=== PATIENT | female | born 1955 ===

== ENCOUNTER 2016-12-26 12:04 | Emergency (ER) | payer MEDICARE, MEDICAID ==
[2016-12-26 12:04] VITALS: BMI 40.8
[2016-12-26 12:18] VITALS: TEMP 97.4
[2016-12-26] MEDS ORDERED: Sodium Chloride 0.9% 1,000 ML IV STA (12:31)
--- NOTE | 2016-12-26 12:47 | ED PDOC ---
Arrival/HPI - General Chief Complaint: Headache Time Seen by Provider: 12/26/16 12:09 Historian: Patient, Family (Daughter) - History of Present Illness Narrative History of Present Illness (Text): 12/26/16 12:26 Neida Tineo is a 61 year old female whose past medical history includes Diabetes and Migraine headaches, who presents to the ED accompanied with daughter for a right sided headache for 10 days. Patient also reports sensitivity to light. Patient states current headache is similar to previous migraine headaches. Patient and daughter states sugar levels have remained consistently normal. Patient otherwise denies any focal weakness, fever, chest pain, shortness of breath, dizziness, nausea, vomiting, abdominal pain, urinary/ bowel changes, or other associated symptoms. PMD: None Time/Duration: > week (10 days) Symptom Onset: Gradual Symptom Course: Unchanged Activities at Onset: Light Context: Home Past Medical History - Provider Review Nursing Documentation Reviewed: Yes - Infectious Disease Hx of Infectious Diseases: None - Reproductive Menopause: Yes - Cardiac Hx Hypotension: Yes - Pulmonary Hx Asthma: Yes Hx Sleep Apnea: Yes (uses CPAP at night, Ambien) - Neurological Hx Migraine: Yes - Endocrine/Metabolic Hx Diabetes Mellitus Type 1: Yes Hx Hypothyroidism: Yes (thyroid removed in 2011) - Psychiatric Hx Depression: Yes Hx Substance Use: No - Surgical History Hx Thyroidectomy: Yes (2011) - Anesthesia Hx Anesthesia: Yes Hx Anesthesia Reactions: No Hx Malignant Hyperthermia: No Family/Social History - Physician Review Nursing Documentation Reviewed: Yes Family/Social History: No Known Family HX Smoking Status: Never Smoked Hx Alcohol Use: No Hx Substance Use: No Allergies/Home Meds Allergies/Adverse Reactions: Allergies No Known Allergies Allergy (Verified 12/26/16 12:18) Home Medications: Home Meds Medication Instructions Recorded Confirmed Albuterol Sulfate [Proventil Hfa] 0.09 mg IH PRN PRN 03/29/16 03/29/16 Amitriptyline [Elavil] 50 mg PO DAILY 03/29/16 03/29/16 Aspirin [Aspirin Chewable] 81 mg PO DAILY 03/29/16 03/29/16 Exenatide Microspheres [Bydureon 2 mg SC AC 03/29/16 03/29/16 Pen] Fluticasone Propionate [Flovent 0 gm IH PRN PRN 03/29/16 03/29/16 Hfa] Insulin Glargine, Recombina 35 unit SC QAM 03/29/16 03/29/16 [Lantus] Insulin Human (NPH)/Regular 10 units SC AC 03/29/16 03/29/16 [Novolin 70/30 (70/30 units/ml) 10 ml] Levothyroxine Sodium [Synthroid] 75 mcg PO DAILY 03/29/16 03/29/16 Losartan [Cozaar] 50 mg PO DAILY 03/29/16 03/29/16 Metoclopramide [Reglan] 10 mg PO DAILY 03/29/16 03/29/16 Metoprolol Succinate XL [Toprol XL] 25 mg PO BRK 03/29/16 03/29/16 Naproxen 375 mg PO PRN PRN 03/29/16 03/29/16 Ofloxacin Ophth 0.3% [Ocuflox 1 drop OU Q6 03/29/16 03/29/16 Ophth 0.3%] Sumatriptan Succinate [Imitrex] 50 mg PO DAILY 03/29/16 03/29/16 buPROPion [Wellbutrin] 300 mg PO DAILY 03/29/16 03/29/16 metFORMIN [glucOPHAGE] 1,000 mg PO BID 03/29/16 03/29/16 Review of Systems - Physician Review All systems were reviewed & negative as marked: Yes - Review of Systems Constitutional: Normal. absent: Fevers Eyes: Photophobia. absent: Vision Changes ENT: Normal Respiratory: Normal. absent: SOB, Cough Cardiovascular: Normal. absent: Chest Pain Gastrointestinal: Normal. absent: Abdominal Pain, Diarrhea, Nausea, Vomiting Genitourinary Female: Normal. absent: Dysuria, Frequency, Hematuria, Urine Output Changes Musculoskeletal: Normal. absent: Back Pain, Neck Pain Skin: Normal Neurological: Headache (Right Sided). absent: Dizziness Endocrine: Normal Hemo/Lymphatic: Normal Psychiatric: Normal Physical Exam Vital Signs Reviewed: Yes Vital Signs Temp Pulse Resp BP Pulse Ox 12/26/16 12:11 97.4 F L 100 H 19 104/65 98 12/26/16 12:05 100 H 19 104/65 98 Temperature: Afebrile Blood Pressure: Normal Pulse: Regular Respiratory Rate: Normal Appearance: Positive for: Well-Appearing, Non-Toxic, Comfortable Pain Distress: None Mental Status: Positive for: Alert and Oriented X 3 - Systems Exam Head: Present: Atraumatic, Normocephalic Pupils: Present: PERRL Extroacular Muscles: Present: EOMI Conjunctiva: Present: Normal Mouth: Present: Moist Mucous Membranes Pharnyx: Present: Normal. No: ERYTHEMA, EXUDATE Respiratory/Chest: Present: Clear to Auscultation, Good Air Exchange. No: Respiratory Distress, Accessory Muscle Use Cardiovascular: Present: Regular Rate and Rhythm, Normal S1, S2. No: Murmurs Abdomen: Present: Normal Bowel Sounds. No: Tenderness, Distention, Peritoneal Signs Upper Extremity: Present: Normal Inspection. No: Cyanosis, Edema Lower Extremity: Present: Normal Inspection. No: Edema Neurological: Present: GCS=15, CN II-XII Intact, Speech Normal, Gait Normal Skin: Present: Warm, Dry, Normal Color. No: Rashes Psychiatric: Present: Alert, Oriented x 3, Normal Insight, Normal Concentration Medical Decision Making ED Course and Treatment: 12/26/16 12:26 Impression: 61 year old female with right sided headache for the last 10 days. Differential Diagnosis include but are not limited to: Migraine Headache vs. Tension Headache vs. less likely Mass Plan: -- Brain CT -- Labs -- IV Fluids -- Reglan -- Toradol -- Reassess and disposition Prior Visits: Notes and results from previous visits were reviewed. Patient was last seen in the ED on 03/29/16 for acute slurred speech. Progress Notes: 12/26/16 13:53 Procedure: CT HEAD WITHOUT CONTRAST. Dictator: OCHOA RAMAN MD Impression: No acute intracranial abnormality. Mild chronic microangiopathic changes and moderate age-related global parenchymal volume loss. 12/26/16 14:07 Patient with noted history of headache consistent with previous migraines but for [address] brain is negative with unremarkable neuro exam. Labs are unremarkable. Patient reports feeling much better s/p meds. She has a pmd with whom she can follow up and wishes to go home. Ok for d/c. - Lab Interpretations Lab Results: 12/26/16 13:00 12/26/16 13:00 Lab Results 12/26/16 13:00: WBC 9.4, RBC 4.02, Hgb 12.2, Hct 35.5 L, MCV 88.3, MCH 30.3, MCHC 34.4, RDW 13.6, Plt Count 324, MPV 10.8, Gran % 56.0, Lymph % (Auto) 32.6, [place] % (Auto) 8.3 H, Eos % (Auto) 2.6, Baso % (Auto) 0.5, Gran # 5.26, Lymph # 3.1, [place] # 0.8 H, Eos # 0.2, Baso # 0.05, PT 11.3, INR 1.05, APTT 25.5, Sodium 139, Potassium 4.3, Chloride 104, Carbon Dioxide 22, Anion Gap 17, BUN 21, Creatinine 1.0, Est GFR ( Amer) > 60, Est GFR (Non-Af Amer) 57, Random Glucose 157 H, Calcium 9.6, Total Bilirubin 0.4, AST 79 H, ALT 47, Alkaline Phosphatase 95, Total Protein 8.2, Albumin 4.1, Globulin 4.1, Albumin/Globulin Ratio 1.0 L, Lipase 212 I have reviewed the lab results: Yes - RAD Interpretation Narrative RAD Interpretations (Text): 12/26/16 13:53 Procedure: CT HEAD WITHOUT CONTRAST. Dictator: OCHOA RAMAN MD FINDINGS: HEMORRHAGE: No intracranial hemorrhage. BRAIN: There are mild chronic microangiopathic changes. 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 There are coarse atherosclerotic calcifications in the cavernous carotid and vertebral arteries. VENTRICLES: There is moderate age-related global parenchymal volume loss and proportionate enlargement of the ventricles and cortical sulci. CALVARIUM: The skull base and calvarium are normal. PARANASAL SINUSES: There is a small retention cyst/ polyp in the right maxillary sinus. The remaining included paranasal sinuses are clear. MASTOID AIR CELLS: Predominantly clear. OTHER FINDINGS: None. Impression: No acute intracranial abnormality. Mild chronic microangiopathic changes and moderate age-related global parenchymal volume loss. 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 - Medication Orders Current Medication Orders: Discontinued Medications Sodium Chloride (Sodium Chloride 0.9%) 1,000 mls @ 999 mls/hr IV .Q1H1M STA Stop: 12/26/16 13:31 Last Admin: 12/26/16 13:00 Dose: 999 MLS/HR eMAR Start Stop Document 12/26/16 13:00 HI (Rec: 12/26/16 13:00 [id number]) Intravenous Solution Start Date 12/26/16 Start Time 13:00 End Date 12/26/16 End time 14:00 Total Infusion Time 60 Ketorolac Tromethamine (Toradol) 30 mg IVP STAT STA Stop: 12/26/16 12:32 Last Admin: 12/26/16 13:00 Dose: 30 MG IVP Administration Document 12/26/16 13:00 HI (Rec: 12/26/16 13:00 HI [facility] [id number]) Charges for Administration # of IVP Administrations 1 Metoclopramide HCl (Reglan) 10 mg IVP STAT STA Stop: 12/26/16 12:32 Last Admin: 12/26/16 13:00 Dose: 10 MG IVP Administration Document 12/26/16 13:00 HI (Rec: 12/26/16 13:00 [id number]) Charges for Administration # of IVP Administrations 1 - Scribe Statement The provider has reviewed the documentation as recorded by the Alida Mcclellan Provider Attestation: All medical record entries made by the Spibhema were at my direction and personally dictated by me. I have reviewed the chart and agree that the record accurately reflects my personal performance of the history, physical exam, medical decision making, and the department course for this patient. I have also personally directed, reviewed, and agree with the discharge instructions and disposition. Disposition/Present on Arrival - Present on Arrival Any Indicators Present on Arrival: No History of DVT/PE: No History of Uncontrolled Diabetes: No Urinary Catheter: No History of Decub. Ulcer: No History Surgical Site Infection Following: None - Disposition Have Diagnosis and Disposition been Completed?: Yes Diagnosis: Headache Disposition: HOME/ ROUTINE Disposition Time: 14:10 Patient Plan: Discharge Patient Problems: Current Active Problems Problem Status Diagnosed Headache Acute Condition: GOOD Discharge Instructions (ExitCare): Migraine Headache (ED) Print Language: [place] Additional Instructions: Follow up with your primary care doctor and neurologist as scheduled. Return to the emergency department if any new concerning symptoms. Referrals: Pam Mccrary MD [Medical Doctor] - Follow up with primary
[2016-12-26 13:06] LABS: ADD MANUAL DIFF? NO
[2016-12-26 13:18] LABS: ALKALINE PHOSPHATASE 95 U/L (38-133); ALT/SGPT 47 U/L (7-56); AST/SGOT 79 U/L (15-39); BILIRUBIN,TOTAL 0.4 mg/dL (0.2-1.3); BLOOD UREA NITROGEN 21 mg/dL (7-21); CALCIUM 9.6 mg/dL (8.4-10.5); CARBON DIOXIDE 22 mmol/L (21-33); CHLORIDE 104 mmol/L (98-107); GFR AFRICAN-AMERICAN > 60; GLUCOSE,RANDOM 157 mg/dL (70-110); LIPASE 212 U/L (23-300); POTASSIUM 4.3 mmol/L (3.6-5.0); SODIUM 139 mmol/L (132-148); TOTAL PROTEIN 8.2 g/dL (5.8-8.3)
[2016-12-26 13:22] LABS: BASO # 0.05 [, K/mm3] (0.0-2.0); BASO % 0.5 % (0.0-3.0); EOS # 0.2 (0.0-0.7); EOS % 2.6 % (1.5-5.0); GRAN # 5.26 (1.4-6.5); HEMATOCRIT 35.5 % (36.0-48.0); LYMPH # 3.1 (1.2-3.4); LYMPH % 32.6 % (22.0-35.0); MEAN CELL VOLUME 88.3 fL (80.0-105.0); MEAN CORPUSCULAR HEMOGLOBIN 30.3 pg (25.0-35.0); MEAN CORPUSCULAR HGB CONC 34.4 g/dl (31.0-37.0); MEAN PLATELET VOLUME 10.8 fl (7.0-11.0); MONO # 0.8 (0.1-0.6); MONO % 8.3 % (1.0-6.0); PLATELET COUNT 324 [, 10^3/uL] (120.0-450.0); RED CELL DISTRIBUTION WIDTH 13.6 % (11.5-14.5); WHITE BLOOD COUNT 9.4 [, 10^3/ul] (4.5-11.0)
[2016-12-26 13:28] LABS: INR 1.05 (0.93-1.08); PARTIAL THROMBOPLASTIN TIME 25.5 Seconds (23.7-30.8)
--- NOTE | 2016-12-26 13:55 | CT ---
PROCEDURE: CT HEAD WITHOUT CONTRAST. HISTORY: Headache COMPARISON: None available. TECHNIQUE: Axial computed tomography images were obtained through the head/brain without intravenous contrast. Radiation dose: Total exam DLP = none are are a trial there wake no the basal Bovie iliac wing name mGy-cm. FINDINGS: HEMORRHAGE: No intracranial hemorrhage. BRAIN: There are mild chronic microangiopathic changes. There is an old lacunar infarction in the posterior limb of the right internal capsule There is no mass, mass effect or abnormal extra axial fluid collection. There are coarse atherosclerotic calcifications in the cavernous carotid and vertebral arteries. VENTRICLES: There is moderate age-related global parenchymal volume loss and proportionate enlargement of the ventricles and cortical sulci. CALVARIUM: The skull base and calvarium are normal. PARANASAL SINUSES: There is a small retention cyst/ polyp in the right maxillary sinus. The remaining included paranasal sinuses are clear. MASTOID AIR CELLS: Predominantly clear. OTHER FINDINGS: None. IMPRESSION: No acute intracranial abnormality. Mild chronic microangiopathic changes and moderate age-related global parenchymal volume loss.
[2016-12-26 14:32] VITALS: BP 110/57; PULSE 82; RESP 16; O2SAT 97
== END 2016-12-26 14:30 | disposition home or self-care (01) ==
LOC: ED 12:04
DX: R51 Headache (principal); I10 Essential (primary) hypertension
CPT/HCPCS: 70450; 80053; 83690; 85025; 85610; 85730; 96361; 96374; 96375; 99285; J1885; J2765; J7040

== ENCOUNTER 2017-06-28 12:20 | Inpatient (IN) | payer MEDICARE, MEDICAID ==
[2017-06-28] MEDS ORDERED: Sodium Chloride 0.9% 1,000 ML IV STA (13:23)
[2017-06-28 13:26] LABS: BASO # 0.05 K/mm3 (0.0-2.0); BASO % 0.6 % (0.0-3.0); EOS # 0.3 (0.0-0.7); EOS % 3.1 % (1.5-5.0); GRAN # 4.31 (1.4-6.5); GRAN % 53.1 % (50.0-68.0); LYMPH # 2.9 (1.2-3.4); LYMPH % 36.3 % (22.0-35.0); MEAN CELL VOLUME 84.9 fl (80.0-105.0); MEAN CORPUSCULAR HEMOGLOBIN 28.9 pg (25.0-35.0); MEAN CORPUSCULAR HGB CONC 34.1 g/dl (31.0-37.0); MONO # 0.6 (0.1-0.6); MONO % 6.9 % (1.0-6.0); RED CELL DISTRIBUTION WIDTH 15.3 % (11.5-14.5); WHITE BLOOD COUNT 8.1 10^3/ul (4.5-11.0)
[2017-06-28] MEDS ORDERED: DiphenhydrAMINE 50 mg/ml Inj IVP STA (13:28)
[2017-06-28 13:36] LABS: ALB/GLOB RATIO 1.4 (1.1-1.8); ALKALINE PHOSPHATASE 82 U/L (38-126); ALT/SGPT 40 U/L (7-56); AST/SGOT 39 U/L (14-36); BILIRUBIN,TOTAL 0.5 mg/dL (0.2-1.3); BLOOD UREA NITROGEN 17 mg/dL (7-21); CALCIUM 9.7 mg/dL (8.4-10.5); CARBON DIOXIDE 24 mmol/L (21-33); CHLORIDE 109 mmol/L (98-107); GFR AFRICAN-AMERICAN > 60; GLUCOSE,RANDOM 104 mg/dL (70-110); POTASSIUM 3.8 mmol/L (3.6-5.0); SODIUM 145 mmol/L (132-148); TOTAL PROTEIN 7.7 g/dL (5.8-8.3)
--- NOTE | 2017-06-28 13:42 | ED PDOC ---
Arrival/HPI <Austen Hernandez - Last Filed: 06/28/17 16:50> <Alina De La Rosa - Last Filed: 06/30/17 08:11> - General Chief Complaint: Weakness/Neurological Deficit Time Seen by Provider: 06/28/17 13:18 - History of Present Illness Narrative History of Present Illness (Text): 61 year old female with a past medical history of TIA, DM, hypertension, and migraines who presents with two days of a headache, generalized weakness, and inability to sleep. She describes the headache as bilateral, throbbing, scaled as a 10/10 in severity, that was unrelieved by Tylenol and Advil. She denies nausea, vomiting, photophobia, or sudden-onset/worst headache ever. She denies any focal motor deficits, visual disturbances, unilateral numbness or tingling, palpitations, chest pain, dyspnea, or diaphoresis. 06/28/17 13:33 06/28/17 13:43 (Alina De La Rosa) Past Medical History - Provider Review Nursing Documentation Reviewed: Yes - Infectious Disease Hx of Infectious Diseases: None - Reproductive Menopause: Yes - Cardiac Hx Hypotension: Yes - Pulmonary Hx Asthma: Yes Hx Sleep Apnea: Yes (uses CPAP at night, Ambien) - Neurological HX Cerebrovascular Accident: Yes (rt side weakness) Hx Migraine: Yes - Endocrine/Metabolic Hx Diabetes Mellitus Type 1: Yes Hx Hypothyroidism: Yes (thyroid removed in 2011) - Psychiatric Hx Depression: Yes Hx Substance Use: No - Surgical History Hx Thyroidectomy: Yes (2011) - Anesthesia Hx Anesthesia: Yes Hx Anesthesia Reactions: No Hx Malignant Hyperthermia: No <Alina De La Rosa - Last Filed: 06/30/17 08:11> Family/Social History Family/Social History: No Known Family HX <Austen Hernandez - Last Filed: 06/28/17 16:50> - Physician Review Nursing Documentation Reviewed: Yes Smoking Status: Never Smoked Hx Alcohol Use: No Hx Substance Use: No <Alina De La Rosa - Last Filed: 06/30/17 08:11> Allergies/Home Meds <Austen Hernandez - Last Filed: 06/28/17 16:50> <Alina De La Rosa - Last Filed: 06/30/17 08:11> Allergies/Adverse Reactions: Allergies No Known Allergies Allergy (Verified 06/28/17 12:32) Home Medications: Home Meds Medication Instructions Recorded Confirmed Albuterol Sulfate [Proventil Hfa] 0.09 mg IH PRN PRN 03/29/16 06/28/17 Aspirin [Aspirin Chewable] 81 mg PO DAILY 03/29/16 06/28/17 Fluticasone Propionate [Flovent 2 puff IH PRN PRN 03/29/16 06/28/17 Hfa] Levothyroxine Sodium [Synthroid] 200 mcg PO DAILY 03/29/16 06/28/17 Losartan [Cozaar] 25 mg PO DAILY 03/29/16 06/28/17 Metoclopramide [Reglan] 10 mg PO DAILY 03/29/16 06/28/17 Metoprolol Succinate XL [Toprol XL] 50 mg PO BRK 03/29/16 06/28/17 buPROPion [Wellbutrin] 300 mg PO DAILY 03/29/16 06/28/17 metFORMIN [glucOPHAGE] 1,000 mg PO BID 03/29/16 06/28/17 Aspirin [Ecotrin] 81 mg PO DAILY 06/28/17 06/28/17 Clonazepam [Klonopin] 0.5 mg PO 06/28/17 Clotrimazole 1% Cream [Lotrimin 1% 0 applic TOP BID 06/28/17 06/28/17 CREAM] Cyanocobalamin [Vitamin B12 1000 1,000 mcg PO DAILY 06/28/17 06/28/17 mcg Tab] Dexamethasone/Tobramycin [Tobradex 5 ml OP 06/28/17 0.1%-0.3% 2.5 Ml] Ibuprofen [Motrin Ib] 600 mg PO BID 06/28/17 06/28/17 Insulin Aspart/Insulin Aspar 125 units SC BID 06/28/17 06/28/17 [Novolog Mix 70/30 (70/30 units/ml)] Insulin Degludec [Tresiba 0 unit SQ 06/28/17 Flextouch U-200] Nystatin/Triamcinolone [Mycolog 1 cre TP BID 06/28/17 06/28/17 Cream] Omeprazole 20 mg PO DAILY 06/28/17 06/28/17 Phentermine HCl 30 mg PO DAILY 06/28/17 06/28/17 Ranitidine HCl [Sunmark Acid 150 mg PO BID 06/28/17 06/28/17 Digital Marketing Officer] Simvastatin [Zocor] 20 mg PO DAILY 06/28/17 06/28/17 Topiramate [Topamax] 25 mg PO 06/28/17 Victoza 1.8 1.8 mg SC DAILY 06/28/17 06/28/17 Review of Systems - Review of Systems Constitutional: Fatigue. absent: Weight Change, Fevers Eyes: absent: Vision Changes, Photophobia ENT: absent: Normal, Hearing Changes, Tinnitus Respiratory: absent: SOB, Cough, Sputum Cardiovascular: absent: Chest Pain, Palpitations, Syncope Gastrointestinal: absent: Diarrhea, Nausea, Vomiting, Food Intolerance Neurological: Headache. absent: Focal Weakness, Gait Changes, Speech Changes, Facial Droop Endocrine: Polydipsia. absent: Diaphoresis, Polyuria Hemo/Lymphatic: absent: Easy Bleeding, Easy Bruising Psychiatric: absent: Anxiety, Depression <Alina De La Rosa - Last Filed: 06/30/17 08:11> Physical Exam Vital Signs Reviewed: Yes <Austen Hernandez - Last Filed: 06/28/17 16:50> Temperature: Afebrile Blood Pressure: Normal Pulse: Regular Appearance: Positive for: Uncomfortable Pain Distress: Moderate Mental Status: Positive for: Alert and Oriented X 3, Agitated Finger Stick Blood Glucose: 113 - Systems Exam Head: Present: Atraumatic, Normocephalic Pupils: Present: PERRL Extroacular Muscles: Present: EOMI Conjunctiva: Present: Normal Mouth: Present: Moist Mucous Membranes Neck: Present: Normal Range of Motion. No: Paraspinal Tenderness, JVD Respiratory/Chest: Present: Clear to Auscultation. No: Respiratory Distress, Accessory Muscle Use Cardiovascular: Present: Regular Rate and Rhythm, Normal S1, S2 Abdomen: Present: Normal Bowel Sounds. No: Tenderness, Guarding Lower Extremity: Present: Normal Inspection, NORMAL PULSES. No: Edema Neurological: Present: CN II-XII Intact, Speech Normal, Motor Func Grossly Intact, Normal Cerebellar Funct, Gait Normal Skin: Present: Warm, Dry, Normal Color. No: Rashes Psychiatric: Present: Alert, Oriented x 3, Normal Insight <Alina De La Rosa - Last Filed: 06/30/17 08:11> Vital Signs Temp Pulse Resp BP Pulse Ox 06/28/17 18:00 78 18 118/65 98 06/28/17 15:21 74 18 121/63 98 06/28/17 13:38 79 18 123/65 97 06/28/17 12:32 98.0 F 86 18 125/69 97 Medical Decision Making <Austen Hernandez - Last Filed: 06/28/17 16:50> Reassessment Condition: Re-examined, Improved <Alina De La Rosa - Last Filed: 06/30/17 08:11> ED Course and Treatment: Patient seen and examined with resident. Came up with treatment and disposition plan with resident. A 61 year old female with a headache. 06/28/17 16:50 CT shows possible cerebellar infarct pt in no distress with no focal neurological deficits symptoms started ~[address] Grover, asked to call Dr. Nato Dutton, agrees with admission for further w/u and Dr. Matos on consult pt aware of and agrees with plan (Austen Hernandez) 61 year old female presenting with two days of headache, generalized weakness, and inability to sleep. CBC, CMP, and fingerstick blood glucose were within normal limits. Patient was given 1 L bolus of Normal Saline, 30 mg IVP of Toradol, 25 mg of Benadryl, and 10 mg of Reglan. Patient re-evaluated. No acute complaints. Currently asymptomatic. 06/28/17 13:50 06/28/17 13:53 06/28/17 14:30 06/28/17 14:32 06/28/17 14:47 06/28/17 16:41 PROCEDURE: CT HEAD WITHOUT CONTRAST. BRAIN: Limited but, diffuse expansion of the ventriculosulcal and cisternal spaces is appreciated with white matter lucency compatible with diffuse cerebral atrophy and chronic microangiopathy. Further, there is a lucency identified at the central left cerebellum measuring a minimum of approximately 2.2 cm greatest dimension suspicious for possible infarction or mass. Follow-up MRI is advised. No significant mass effect is exerted on a general basis on left posterior fossa contents at this time. The brainstem and supratentorial compartment are stable. IMPRESSION: There is now an interval lesion identified at the central left cerebellar hemisphere suspicious for potential interval ischemic infarction, inflammatory disease or even neoplasm. Follow-up MRI is advised without contrast for additional characterization. 06/28/17 16:44 06/28/17 16:47 (Alina De La Rosa) - Lab Interpretations Lab Results: 06/28/17 13:20 06/28/17 13:20 Lab Results 06/28/17 13:20: Sodium 145, Potassium 3.8, Chloride 109 H, Carbon Dioxide 24, Anion Gap 16, BUN 17, Creatinine 0.9, Est GFR ( Amer) > 60, Est GFR (Non- Af Amer) > 60, Random Glucose 104, Calcium 9.7, Total Bilirubin 0.5, AST 39 H, ALT 40, Alkaline Phosphatase 82, Total Protein 7.7, Albumin 4.4, Globulin 3.2, Albumin/Globulin Ratio 1.4 06/28/17 13:20: WBC 8.1, RBC 4.36, Hgb 12.6, Hct 37.0, MCV 84.9, MCH 28.9, MCHC 34.1, RDW 15.3 H, Plt Count 283, MPV 12.0 H, Gran % 53.1, Lymph % (Auto) 36.3 H , [place] % (Auto) 6.9 H, Eos % (Auto) 3.1, Baso % (Auto) 0.6, Gran # 4.31, Lymph # 2.9, [place] # 0.6, Eos # 0.3, Baso # 0.05 - RAD Interpretation Radiology Orders: 06/28/17 14:22 HEAD W/O CONTRAST [CT] Stat - Medication Orders Current Medication Orders: Acetaminophen/Butalbital/Caffeine (Fioricet) 1 tab PO Q4H PRN PRN Reason: Headache Last Admin: 06/29/17 13:06 Dose: 1 tab [facility] Pain Assessment Document 06/29/17 13:06 (Rec: 06/29/17 13:07 [id number]) Pain Reassessment Is this a pain reassessment? No Location Pain Location Body Telephonic Nurse Case Manager Description Description Intermittent Intensity of Pain at present 8 Re-Assess: [facility] Pain Assessment Document 06/29/17 14:06 (Rec: 06/29/17 18:47 [id number]) Pain Reassessment Is this a pain reassessment? Yes Aspirin (Ecotrin) 325 mg PO DAILY [facility] Atorvastatin Calcium (Lipitor) 80 mg PO DIN [facility] Last Admin: 06/29/17 18:51 Dose: 80 mg Bupropion HCl (Wellbutrin) 300 mg PO DAILY [facility] Last Admin: 06/29/17 09:57 Dose: 300 mg Clopidogrel Bisulfate (Plavix) 75 mg PO DAILY [facility] Heparin Sodium (Porcine) (Heparin) 5,000 units SC Q12 [facility] PRN Reason: Protocol Last Admin: 06/29/17 22:57 Dose: 5,000 units Subcutaneous Administrations Document 06/29/17 22:57 KTB (Rec: 06/29/17 22:58 KTB [id number]) Injection Site MAR Injection Site Left Abdomen Charges for Administration # of Subcutaneous Administrations 1 Insulin Human Regular (Humulin R High) 0 units SC ACHS [facility] PRN Reason: Protocol Last Admin: 06/29/17 22:59 Dose: Not Given Non-Admin Reason: Blood Sugar Parameter MAR Blood Glucose Document 06/29/17 22:59 KTB (Rec: 06/29/17 23:00 KTB [id number]) Blood Glucose Finger Stick Blood Glucose (70-120) 191 Levothyroxine Sodium (Synthroid) 200 mcg PO ACB [facility] Last Admin: 06/29/17 09:56 Dose: 200 mcg Losartan Potassium (Cozaar) 25 mg PO DAILY [facility] Last Admin: 06/29/17 09:54 Dose: 25 mg Metformin HCl (Glucophage) 1,000 mg PO BID [facility] Last Admin: 06/29/17 18:48 Dose: 1,000 mg Metoprolol Succinate (Toprol Xl) 50 mg PO BRK [facility] Last Admin: 06/29/17 09:56 Dose: 50 mg MAR Pulse and Blood Pressure Document 06/29/17 09:56 JW (Rec: 06/29/17 09:57 JW [id number]) Blood Pressure Blood Pressure (100/60-150/90) 118/64 Discontinued Medications Acetaminophen (Tylenol 325mg Tab) 975 mg PO STAT STA Stop: 06/28/17 13:25 Last Admin: 06/28/17 14:05 Dose: 975 mg MAR Pain/Vitals Document 06/28/17 14:05 SF (Rec: 06/28/17 14:05 SF [email or web address] Pain Reassessment Is This A Pain ReAssessment? Yes Sleep Is patient sleeping during reassessment? No Presence of Pain Presence of Pain Yes Albuterol/Ipratropium (Duoneb 3 Mg/0.5 Mg (3 Ml) Ud) 3 ml IH Q6 PRN PRN Reason: Wheezing Stop: 06/29/17 12:01 Aspirin (Aspirin) 325 mg PO STAT STA Stop: 06/28/17 16:27 Last Admin: 06/28/17 18:15 Dose: 325 mg Aspirin (Aspirin Chewable) 81 mg PO DAILY [facility] Last Admin: 06/29/17 09:54 Dose: 81 mg Atorvastatin Calcium (Lipitor) 40 mg PO STAT STA Stop: 06/28/17 16:26 Last Admin: 06/28/17 18:15 Dose: 40 mg Diphenhydramine HCl (Benadryl) 25 mg IVP STAT STA Stop: 06/28/17 13:29 Last Admin: 06/28/17 14:06 Dose: 25 mg IVP Administration Document 06/28/17 14:06 SF (Rec: 06/28/17 14:06 SF [email or web address] Charges for Administration # of IVP Administrations 1 Heparin Sodium (Porcine) (Heparin) 5,000 units SC ONCE ONE PRN Reason: Protocol Stop: 06/29/17 16:14 Last Admin: 06/29/17 18:50 Dose: 5,000 units Subcutaneous Administrations Document 06/29/17 18:50 JW (Rec: 06/29/17 18:50 [id number]) Charges for Administration # of Subcutaneous Administrations 1 Sodium Chloride (Sodium Chloride 0.9%) 1,000 mls @ 999 mls/hr IV .Q1H1M STA Stop: 06/28/17 14:23 Last Admin: 06/28/17 14:06 Dose: 999 mls/hr eMAR Start Stop Document 06/28/17 14:06 SF (Rec: 06/28/17 14:07 SF [email or web address]) Intravenous Solution Start Date 06/28/17 Start Time 14:06 End Date 06/28/17 End time 15:07 Total Infusion Time 61 Ketorolac Tromethamine (Toradol) 30 mg IVP STAT STA Stop: 06/28/17 13:24 Last Admin: 06/28/17 14:05 Dose: 30 mg MAR Pain Assessment Document 06/28/17 14:05 SF (Rec: 06/28/17 14:05 [email or web address] Pain Reassessment Is this a pain reassessment? Yes Sleep Is patient sleeping during reassessment? No Presence of Pain Presence of Pain Yes IVP Administration Document 06/28/17 14:05 SF (Rec: 06/28/17 14:05 [email or web address]) Charges for Administration # of IVP Administrations 1 Metoclopramide HCl (Reglan) 10 mg IVP STAT STA Stop: 06/28/17 14:02 Last Admin: 06/28/17 14:21 Dose: 10 mg IVP Administration Document 06/28/17 14:21 (Rec: 06/28/17 14:21 [email or web address] Charges for Administration # of IVP Administrations 1 Pneumococcal Polyvalent Vaccine (Pneumovax 23 Vaccine) 0.5 ml IM .ONCE ONE Stop: 06/28/17 23:12 NIHSS Scale ([place]) Time Performed: 16:55 - How Severe is the Stoke Baseline Level of Consciousness: 0=Alert LOC to Questions: 0=Both comments correct LOC to commands: 0=Obeys both correctly Best Gaze: 0=Normal Visual: 0=No visual loss Facial: 0=Normal Motor Arm - Left: 0=No drift Motor Arm - Right: 0=No drift Motor Leg - Left: 0=No drift Motor Leg - Right: 0=No drift Limb Ataxia: 0=Absent Sensory: 0=Normal Best Language: 0=No aphasia Dysarthia: 0=Normal articulation Extinction & Inattention (Neglect): 0=Normal, no object Score: 0 Risk Level: No Stroke Risk <Austen Hernandez - Last Filed: 06/28/17 16:50> rTPA Inclusion/Exclusion - Refusal of Treatment Patient Refused Treatment: No - Inclusion Criteria for Altepase Patient is 18 years or Older: Yes The Clinical Diagnosis of Ischemic Stroke That is Causing a Potentially Disabling Neurological Deficit: No Time of Onset is Well Established to be Less Than 270 Minute Before Treatment Would Begin: No Risk/Benefit Discussed With Patient/Family Member Present: No <Austen Hernandez - Last Filed: 06/28/17 16:50> - Refusal of Treatment Patient Refused Treatment: No - Inclusion Criteria for Altepase Patient is 18 years or Older: Yes The Clinical Diagnosis of Ischemic Stroke That is Causing a Potentially Disabling Neurological Deficit: Yes Time of Onset is Well Established to be Less Than 270 Minute Before Treatment Would Begin: Yes Risk/Benefit Discussed With Patient/Family Member Present: Yes - Exclusion Criteria for Altepase Uncontrolled Hypertension at Time of Treatment (Systolic BP above 185 or Diastolic BP above 110 mmHg): No <Alina De La Rosa - Last Filed: 06/30/17 08:11> Disposition/Present on Arrival - Present on Arrival Any Indicators Present on Arrival: No - Disposition Have Diagnosis and Disposition been Completed?: Yes Disposition Time: 16:54 Patient Plan: Admission <Austen Hernandez - Last Filed: 06/28/17 16:50> - Present on Arrival History of DVT/PE: No History of Uncontrolled Diabetes: No Urinary Catheter: No History of Decub. Ulcer: No History Surgical Site Infection Following: None <Alina De La Rosa - Last Filed: 06/30/17 08:11> - Disposition Diagnosis: Abnormal CT of brain Disposition: HOSPITALIZED Patient Problems: Current Active Problems Problem Status Onset Abnormal CT of brain Acute Condition: FAIR
--- NOTE | 2017-06-28 16:19 | CT ---
PROCEDURE: CT HEAD WITHOUT CONTRAST. HISTORY: YANG x2 weeks COMPARISON: Brain MRI without contrast 03/18/2017. Head CT without contrast 12/26/2016. TECHNIQUE: Axial computed tomography images were obtained through the head/brain without intravenous contrast. Radiation dose: Total exam DLP = 801.72 mGy-cm. This CT exam was performed using one or more of the following dose reduction techniques: Automated exposure control, adjustment of the mA and/or kV according to patient size, and/or use of iterative reconstruction technique. FINDINGS: HEMORRHAGE: No intracranial hemorrhage. BRAIN: Limited but, diffuse expansion of the ventriculosulcal and cisternal spaces is appreciated with white matter lucency compatible with diffuse cerebral atrophy and chronic microangiopathy. Further, there is a lucency identified at the central left cerebellum measuring a minimum of approximately 2.2 cm greatest dimension suspicious for possible infarction or mass. Follow-up MRI is advised. No significant mass effect is exerted on a general basis on left posterior fossa contents at this time. The brainstem and supratentorial compartment are stable. VENTRICLES: Unremarkable. No hydrocephalus. CALVARIUM: Unremarkable. PARANASAL SINUSES: Unremarkable as visualized. No significant inflammatory changes. MASTOID AIR CELLS: Unremarkable as visualized. No inflammatory changes. OTHER FINDINGS: None. IMPRESSION: There is now an interval lesion identified at the central left cerebellar hemisphere suspicious for potential interval ischemic infarction, inflammatory disease or even neoplasm. Follow-up MRI is advised without contrast for additional characterization. Mild age related neuro degenerative changes are again identified.
[2017-06-28] MEDS ORDERED: Albuterol-Ipratrop 3 mg / 0.5 (3 ml) UD IH PRN (19:22)
--- NOTE | 2017-06-28 19:44 | HP ---
HISTORY OF PRESENT ILLNESS: Ms. Tineo is a 61-year-old female presented to the ED with headache, weakness, and difficulty in walking. She has history of migraine headaches. She had 3 such episodes in this year with history consistent of TIA. She had an MRI of the brain done in 03/2017, which was unremarkable. CAT scan of the head done in the ED today showed left cerebellum ischemic infarction. She has diabetes mellitus, poorly controlled. Hypertension, blood pressure is fairly controlled on current medication. History of migraine headaches, two episodes in past three months. Denies any nausea or vomiting. No chest pain. Headache bilateral, 10/10. PAST MEDICAL HISTORY: COPD, sleep apnea, history of TIA, stroke, diabetes mellitus type 2, and hypothyroidism. PAST SURGICAL HISTORY: Thyroidectomy. PERSONAL HISTORY: Never smoked. No history of alcohol abuse. FAMILY HISTORY: Noncontributory. No positive family history in mother and father. SOCIAL HISTORY: Lives at home. ALLERGIES: NO KNOWN DRUG ALLERGIES. HOME MEDICATIONS: Albuterol p.r.n., levothyroxine 200 mcg daily, Reglan 100 mg daily, Cozaar 25 mg daily, aspirin 81 mg daily, metformin 1000 mg p.o. b.i.d., Mixtard insulin, omeprazole, Zocor 20 mg daily, Victoza 1.8 mg subcutaneous daily, and Topamax 25 mg daily. REVIEW OF SYSTEMS: As per HPI. Rest of 12-point review of systems are reviewed and negative. PHYSICAL EXAMINATION: GENERAL: Comfortable in bed, in no acute distress. VITAL SIGNS: Temperature 98, heart rate 86 per minute, respiratory rate 18 per minute, blood pressure 125/69, and pulse oximetry is 97% on room air. HEENT: Normal. NECK: Supple. No lymphadenopathy. CHEST: Air entry present and equal bilaterally. No added sounds. CARDIOVASCULAR: S1 and S2 are normal. No murmur. No gallop. ABDOMEN: Soft and nontender. No hepatosplenomegaly. EXTREMITIES: No edema. NEUROLOGIC: Cranial nerves intact II through XII. Speech normal. Moving all the limbs. Gait not tested. PSYCHIATRIC: Alert and oriented x3. Normal insight. IMAGING: As per HPI. LABORATORY DATA: White count 8.1, hemoglobin 12.6, hematocrit 37, platelet 283, sodium 145, potassium 3.8, BUN 17, creatinine 0.9, and bilirubin 0.5. ASSESSMENT: 1. Left cerebellar ischemic infarction. 2. Transient ischemic attack. 3. Diabetes mellitus type 2. 4. Hypertension. 5. History of migraine headache. 6. Possible hypercoagulable state. PLAN: She will be admitted to telemetry monitoring. We will continue aspirin 81 mg daily. We will continue Lipitor 10 mg daily. DuoNeb p.r.n. Diabetes mellitus, we will put on the sliding scale insulin induced protocol. Neurology consultation, Dr. Matos requested. We will continue to monitor blood counts. Synthroid 200 mcg daily. We will check the TSH. Continue beta-shellie 50 mg daily. Continue metformin 1000 mg p.o. b.i.d.. We will defer the decision of MRI to neurology. She had MRI in 03/2017. Blood count stable. CBC showed monocytosis and lymphocytosis. Renal function is normal. LFTs normal. Ann Marie Dutton MD
[2017-06-28] MEDS: Insulin Reg-HIGH-Coverage SC SCH (22:00)
[2017-06-28 23:11] VITALS: BMI 36.4
[2017-06-28] MEDS ORDERED: Pneumococcal 23-Valent Vaccine IM ONE (23:11)
--- NOTE | 2017-06-29 07:33 | CP.PCM.CON ---
<Clayton Marleyystal - Last Filed: 06/29/17 09:28> History of Present Illness - History of Present Illness History of Present Illness: Neurology Consult Note for Harsh Higuera PGY2 Reason for consult: r/o cerebellar infarct This is a 61Y F with PMH HTN, hypothryroidism, uncontrolled DM, sleep apnea and migraines who came to ED for headache x 3 days. She reports it is around the temples and radiates down into her neck. It is constant and not relieved by OTC Advil or Tylenol. Patient denies having any slurred speech, confusion, numbness/ tingling, facial droop, weakness, dizziness, syncopal episodes, photophobia, CP or SOB. Patient was seen by Dr. Matos in March 2016 for confusion and slurred speech without changes seen on head CT. At the time HgbA1c was 12.2. These symptoms were thought to be secondary to hyperglycemia. In the ED, patient did not have any focal weakness or neurological deficit on exam. However at this admission it was noted on head CT that there is an interval lesion seen on the central cerebellar hemisphere. PMH: HTN, hypothryroidism, uncontrolled DM, and migraines PSH: Thyroidectomy Home meds: As per MAR All: NKDA SH: Denies tobacco, EtOH or drug use. Lives with family Review of Systems - Constitutional Constitutional: absent: Chills, Fatigue, Fever - EENT Eyes: absent: Blurred Vision, Change in Vision, Photophobia, Loss of Vision Nose/Mouth/Throat: absent: Dysphagia, Odynophagia - Cardiovascular Cardiovascular: absent: Chest Pain, Diaphoresis, Leg Edema, Syncope - Respiratory Respiratory: absent: Cough, Dyspnea, Dyspnea on Exertion - Gastrointestinal Gastrointestinal: absent: Abdominal Pain, Change in Bowel Habits, Diarrhea, Nausea, Vomiting - Genitourinary Genitourinary: absent: Dysuria, Nocturia - Musculoskeletal Musculoskeletal: absent: Abnormal Gait, Arthralgias, Back Pain, Numbness, Tingling - Neurological Neurological: absent: Abnormal Gait, Confusion, Dizziness, Focal Weakness, Memory Loss, Vertigo, Weakness - Psychiatric Psychiatric: absent: Anxiety, Depression Past Patient History - Infectious Disease Hx of Infectious Diseases: None - Past Social History Smoking Status: Never Smoked Alcohol: None Drugs: Denies Home Situation {Lives}: With Family - CARDIAC Hx Cardiac Disorders: Yes Hx Hypercholesterolemia: Yes Hx Hypertension: Yes - PULMONARY Hx Asthma: Yes Hx Sleep Apnea: Yes (uses CPAP at night, Ambien) - NEUROLOGICAL Hx Neurological Disorder: Yes HX Cerebrovascular Accident: No (TIA per patient) Hx Migraine: Yes Hx Transient Ischemic Attacks (TIA): Yes - HEENT Hx HEENT Problems: Yes Hx Blind: Yes (legally blind) - RENAL Hx Chronic Kidney Disease: No - ENDOCRINE/METABOLIC Hx Endocrine Disorders: Yes Hx Diabetes Mellitus Type 1: Yes Hx Hypothyroidism: Yes (thyroid removed in 2011) - HEMATOLOGICAL/ONCOLOGICAL Hx Blood Disorders: No - INTEGUMENTARY Hx Dermatological Problems: No - MUSCULOSKELETAL/RHEUMATOLOGICAL Hx Musculoskeletal Disorders: Yes Hx Back Pain: Yes Hx Falls: No - GASTROINTESTINAL Hx Gastrointestinal Disorders: No - GENITOURINARY/GYNECOLOGICAL Hx Genitourinary Disorders: No - PSYCHIATRIC Hx Psychophysiologic Disorder: Yes Hx Depression: Yes Hx Substance Use: No - SURGICAL HISTORY Hx Surgeries: Yes Other/Comment: thyroidectomy, tonsilectomy - ANESTHESIA Hx Anesthesia: Yes Hx Anesthesia Reactions: No Hx Malignant Hyperthermia: No Meds Allergies/Adverse Reactions: Allergies Allergy/AdvReac Type Severity Reaction Status Date / Time No Known Allergies Allergy Verified 06/28/17 12:32 - Medications Medications: Current Medications Albuterol/Ipratropium (Duoneb 3 Mg/0.5 Mg (3 Ml) Ud) 3 ml IH Q6 PRN PRN Reason: Wheezing Stop: 06/29/17 12:01 Aspirin (Aspirin Chewable) 81 mg PO DAILY [facility] Atorvastatin Calcium (Lipitor) 10 mg PO DIN [facility] Bupropion HCl (Wellbutrin) 300 mg PO DAILY [facility] Insulin Human Regular (Humulin R High) 0 units SC ACHS [facility] PRN Reason: Protocol Last Admin: 06/28/17 22:00 Dose: Not Given Levothyroxine Sodium (Synthroid) 200 mcg PO ACB [facility] Losartan Potassium (Cozaar) 25 mg PO DAILY [facility] Metformin HCl (Glucophage) 1,000 mg PO BID [facility] Last Admin: 06/28/17 21:34 Dose: 1,000 mg Metoprolol Succinate (Toprol Xl) 50 mg PO BRK [facility] Physical Exam - Constitutional Appears: Well - Head Exam Head Exam: ATRAUMATIC, NORMAL INSPECTION, NORMOCEPHALIC - Eye Exam Eye Exam: EOMI, Normal appearance, PERRL Pupil Exam: NORMAL ACCOMODATION, PERRL - ENT Exam ENT Exam: Mucous Membranes Moist, Normal Exam - Neck Exam Neck exam: Positive for: Normal Inspection - Respiratory Exam Respiratory Exam: Clear to Auscultation Bilateral, NORMAL BREATHING PATTERN. absent: Rales, Rhonchi, Wheezes - Cardiovascular Exam Cardiovascular Exam: REGULAR RHYTHM, +S1, +S2. absent: Gallop, Rubs, Systolic Murmur - GI/Abdominal Exam GI & Abdominal Exam: Normal Bowel Sounds, Soft. absent: Guarding, Tenderness - Extremities Exam Extremities exam: Positive for: normal inspection. Negative for: calf tenderness, pedal edema - Neurological Exam Neurological exam: Alert, CN II-XII Intact, Oriented x3, Reflexes Normal - Expanded Neurological Exam Expanded Patient oriented to: person, place, time Cranial nerves: EOM's Intact: Normal, Facial Palsey w/Forehead Movement: Normal , Facial Palsey w/o Forehead Movement: Normal, Facial Sensation: Normal, Tongue Deviation: Normal Cerebellar Function: Finger to Nose: Normal Upper motor neuron: Pronator Drift: Normal Sensory exam: Lower Extremity 2 Point Discrimination: Normal, Lower Extremity Light Touch: Normal, Upper Extremity Light Touch: Normal, Upper Extremity Pin Prick: Normal Neuro motor strength exam: Left Upper Extremity: 5, Right Upper Extremity: 4, Left Lower Extremity: 5, Right Lower Extremity: 4 Coma Scale Eye Opening: SPONTANEOUS Coma Scale Motor Response: OBEYS COMMANDS - Psychiatric Exam Psychiatric exam: Normal Affect, Normal Mood - Skin Skin Exam: Dry, Intact, Normal Color, Warm Results - Vital Signs Recent Vital Signs: Last Vital Signs Temp 97.8 F 06/29/17 00:00 Pulse 88 06/29/17 05:24 Resp 20 06/29/17 00:00 BP 99/60 L 06/29/17 00:00 Pulse Ox 96 06/29/17 00:00 - Labs Result Diagrams: 06/28/17 13:20 06/28/17 13:20 Labs: Laboratory Results - last 24 hr 06/28/17 06/29/17 21:08 00:02 POC Glucose (mg/dL) 90 75 Assessment & Plan - Assessment and Plan (Free Text) Assessment: This is a 61Y F with PMH HTN, HLD, hypothryroidism, uncontrolled DM, sleep apnea and migraines who came to ED for headache x 3 days. Patient was found to have an interval lesion seen on the central cerebellar hemisphere without any focal neurological deficits noted. Headache can be migraine in nature. Her description of her headache leans towards a tension headache, but CVA cannot be ruled out to due patient history. Plan: - Will check HgbA1c - Will order brain MRI - Continue ASA and Lipitor - Maintain euglycemia (140s-180s) - Will order Fiorecet q4h as needed for headache Case seen, discussed and reviewed with Dr. Matos. Harsh Marley PGY2 - Date & Time Date: 06/29/17 Time: 09:55 <Eduardo Matos - Last Filed: 06/29/17 13:04> Meds - Medications Medications: Current Medications Acetaminophen/Butalbital/Caffeine (Fioricet) 1 tab PO Q4H PRN PRN Reason: Headache Aspirin (Aspirin Chewable) 81 mg PO DAILY [facility] Last Admin: 06/29/17 09:54 Dose: 81 mg Aspirin (Ecotrin) 325 mg PO DAILY [facility] Atorvastatin Calcium (Lipitor) 10 mg PO DIN [facility] Bupropion HCl (Wellbutrin) 300 mg PO DAILY [facility] Last Admin: 06/29/17 09:57 Dose: 300 mg Insulin Human Regular (Humulin R High) 0 units SC ACHS [facility] PRN Reason: Protocol Last Admin: 06/29/17 09:56 Dose: Not Given Levothyroxine Sodium (Synthroid) 200 mcg PO ACB [facility] Last Admin: 06/29/17 09:56 Dose: 200 mcg Losartan Potassium (Cozaar) 25 mg PO DAILY [facility] Last Admin: 06/29/17 09:54 Dose: 25 mg Metformin HCl (Glucophage) 1,000 mg PO BID [facility] Last Admin: 06/29/17 09:56 Dose: 1,000 mg Metoprolol Succinate (Toprol Xl) 50 mg PO BRK [facility] Last Admin: 06/29/17 09:56 Dose: 50 mg Results - Vital Signs Recent Vital Signs: Last Vital Signs Temp 97.6 F 06/29/17 08:48 Pulse 84 06/29/17 08:48 Resp 20 06/29/17 08:48 BP 118/64 06/29/17 09:56 Pulse Ox 97 06/29/17 08:48 - Labs Result Diagrams: 06/28/17 13:20 06/28/17 13:20 Labs: Laboratory Results - last 24 hr 06/28/17 06/29/17 06/29/17 21:08 00:02 08:07 POC Glucose (mg/dL) 90 75 Hemoglobin A1c 9.6 H D Triglycerides Cholesterol HDL Cholesterol 06/29/17 06/29/17 10:00 12:45 POC Glucose (mg/dL) 187 H Hemoglobin A1c Triglycerides 175 H Cholesterol 156 HDL Cholesterol 62 H Attending/Attestation - Attestation I have personally seen and examined this patient.: Yes I have fully participated in the care of the patient.: Yes I have reviewed all pertinent clinical information: Yes
[2017-06-29] MEDS ORDERED: Metoprolol Succinate 25 mg XL Tab PO SCH (08:00)
--- NOTE | 2017-06-29 09:31 | CARD ---
APPROVED REPORT EKG Measurement Heart [id number] <Conclusion> Normal sinus rhythm NSSTW changes Improved repolarization c/w ECG 03/29/16
[2017-06-29] MEDS: Metoprolol Succinate 50 mg XL Tab PO SCH (09:56)
[2017-06-29] MEDS ORDERED: Apap-Butalbital-Caffeine 325-50-40mg Tab PO PRN (09:56)
[2017-06-29] MEDS: Levothyroxine 200 MCG TAB PO SCH (09:56)
[2017-06-29] MEDS: Insulin Reg-HIGH-Coverage SC SCH ×4 (09:56→22:59)
[2017-06-29] MEDS ORDERED: Non Formulary Medication (Simvastatin [Zocor] 20 MG) PO SCH (10:00)
[2017-06-29] MEDS ORDERED: Levothyroxine 75 MCG TAB PO SCH (10:00)
--- NOTE | 2017-06-29 12:16 | MRI ---
PROCEDURE: MRI BRAIN WITHOUT CONTRAST HISTORY: r/o CVA COMPARISON: Noncontrast head CT from 06/28/2017 TECHNIQUE: Multiplanar, multisequence MR images of the brain were obtained without intravenous contrast enhancement. FINDINGS: HEMORRHAGE: None DWI: There are several variable sized foci of restricted diffusion in the left superior cerebellar hemisphere, the largest measures 1.5 cm. BRAIN PARENCHYMA: There is T2/FLAIR hyperintensity corresponding to the areas of restricted diffusion with mild vasogenic edema surrounding the larger lesion. There is minimal mass effect on the posterior ventricle without evidence of hydrocephalus or midline shift. There is no mass or abnormal extra-axial fluid collection. There are moderate chronic microangiopathic changes. The midline sagittal structures are normal. VENTRICLES: There is moderate age-related global parenchymal volume loss and proportionate enlargement of the ventricles and cortical sulci. CRANIUM: There is normal bone marrow signal pattern. ORBITS: Grossly unremarkable. PARANASAL SINUSES/MASTOIDS: There is mild mucosal thickening in the paranasal sinuses. The mastoid air cells are predominantly clear VASCULAR SYSTEM: There are normal signal voids in the larger intracranial arteries. OTHER FINDINGS: None. IMPRESSION: 1. Multifocal acute infarctions in the left superior cerebellar artery territory. The pattern of distribution is in keeping with embolic etiology. Mild vasogenic edema surrounding the largest area of acute infarction which measures about 1.5 cm. Minimal mass effect on the 4th ventricle without evidence of hydrocephalus or midline shift. 2. Moderate chronic microangiopathic changes and moderate age-related global parenchymal volume loss. Important findings were discussed with nurse Sravanthi Johnston on 06/29/2017 at 12:15 p.m.
[2017-06-29 12:53] LABS: CHOLESTEROL 156 mg/dL (130-200)
--- NOTE | 2017-06-29 18:08 | US ---
PROCEDURE: Bilateral carotid artery duplex ultrasound HISTORY: Carotid stenosis PHYSICIAN(S): Lb Chase MD. TECHNIQUE: Duplex sonography and color-flow Doppler were used to evaluate the carotid bifurcations and limited segments of the vertebral arteries bilaterally. FINDINGS: The exam is somewhat limited by tortuous vessels There is mild smooth hypoechoic plaque noted at the carotid bifurcations bilaterally. The peak systolic velocity in the proximal right internal carotid artery is 57 cm/sec. This corresponds to a 20 to 39% proximal right ICA stenosis. Normal systolic velocities are noted in the proximal right external carotid artery. There is antegrade flow in the right vertebral artery. The peak systolic velocity in the proximal left internal carotid artery is 58 cm/sec. This corresponds to a 20 to 39% proximal left ICA stenosis. Normal systolic velocities are noted in the proximal left external carotid artery. There is antegrade flow in the left vertebral artery. IMPRESSION: 1. Bilateral 20-39% proximal ICA stenoses. 2. Antegrade flow in both vertebral arteries.
--- NOTE | 2017-06-30 06:52 | CP.PCM.PN ---
<Ana Marley - Last Filed: 06/30/17 13:08> Subjective - Date & Time of Evaluation Date of Evaluation: 06/30/17 Time of Evaluation: 06:49 - Subjective Subjective: Neurology Progress Note for Harsh Higuera PGY2 Patient seen and examined at bedside. There were no acute overnight events as per nursing. She reports feeling her headache has improved. It is intermittent and was relieved with Fiorecet. She denies any vision changes, CP, SOB, n/v/d, numbness/tingling, or problems with gait. Objective - Vital Signs/Intake and Output Vital Signs (last 24 hours): Temp Pulse Resp BP Pulse Ox 98.5 F 64 20 125/76 97 06/30/17 00:00 06/30/17 05:04 06/30/17 00:00 06/30/17 00:00 06/30/17 00:00 Intake and Output: 06/29/17 06/30/17 18:59 06:59 Intake Total 720 Balance 720 - Medications Medications: Current Medications Acetaminophen/Butalbital/Caffeine (Fioricet) 1 tab PO Q4H PRN PRN Reason: Headache Last Admin: 06/29/17 13:06 Dose: 1 tab Aspirin (Ecotrin) 325 mg PO DAILY [facility] Atorvastatin Calcium (Lipitor) 80 mg PO DIN [facility] Last Admin: 06/29/17 18:51 Dose: 80 mg Bupropion HCl (Wellbutrin) 300 mg PO DAILY [facility] Last Admin: 06/29/17 09:57 Dose: 300 mg Clopidogrel Bisulfate (Plavix) 75 mg PO DAILY [facility] Heparin Sodium (Porcine) (Heparin) 5,000 units SC Q12 [facility] PRN Reason: Protocol Last Admin: 06/29/17 22:57 Dose: 5,000 units Insulin Human Regular (Humulin R High) 0 units SC ACHS [facility] PRN Reason: Protocol Last Admin: 06/29/17 22:59 Dose: Not Given Levothyroxine Sodium (Synthroid) 200 mcg PO ACB [facility] Last Admin: 06/29/17 09:56 Dose: 200 mcg Losartan Potassium (Cozaar) 25 mg PO DAILY [facility] Last Admin: 06/29/17 09:54 Dose: 25 mg Metformin HCl (Glucophage) 1,000 mg PO BID [facility] Last Admin: 06/29/17 18:48 Dose: 1,000 mg Metoprolol Succinate (Toprol Xl) 50 mg PO [facility] Last Admin: 06/29/17 09:56 Dose: 50 mg - Constitutional Appears: No Acute Distress - Head Exam Head Exam: ATRAUMATIC, NORMAL INSPECTION, NORMOCEPHALIC - Eye Exam Eye Exam: Normal appearance, PERRL Pupil Exam: NORMAL ACCOMODATION, PERRL - ENT Exam ENT Exam: Mucous Membranes Moist - Neck Exam Neck Exam: Thyromegaly - Respiratory Exam Respiratory Exam: Clear to Ausculation Bilateral, NORMAL BREATHING PATTERN. absent: Rales, Rhonchi, Wheezes - Cardiovascular Exam Cardiovascular Exam: REGULAR RHYTHM, +S1, +S2. absent: Murmur - GI/Abdominal Exam GI & Abdominal Exam: Soft, Normal Bowel Sounds. absent: Rigid, Tenderness, Mass , Rebound - Neurological Exam Neurological Exam: Alert, Awake, CN II-XII Intact, Normal Gait, Oriented x3 Neuro motor strength exam: Left Upper Extremity: 5, Right Upper Extremity: 5, Left Lower Extremity: 5, Right Lower Extremity: 5 - Psychiatric Exam Psychiatric exam: Normal Affect, Normal Mood - Skin Skin Exam: Dry, Intact, Normal Color, Warm Assessment and Plan - Assessment and Plan (Free Text) Assessment: This is a 61Y F with PMH HTN, HLD, hypothryroidism, uncontrolled DM, sleep apnea and migraines who was found to have L superior cerebellar infarct seen on MRI which is secondary to atherosclerotic disease from uncontrolled risk factors. Patient does not have any focal neurological deficits at this time. MRI showed embolic stroke, which is usual cardiac in origin. Carotid dopplers showed 20-39% stenosis bilaterally. Headache is most likely a migraine as well as stroke which is relieved by Fiorecet. Plan: - Continue ASA - Lipitor 80mg for 3 weeks then decrease to 40mg - Will start Plavix tomorrow - Recommend Cardiac work up - HgbA1c: 9.6 - Maintain euglycemia (140s-180s) - Counseled patient of the importance of diet and exercise and the risk of stroke with uncontrolled DM, BP and cholesterol - Physical therapy/Occupational therapy - Patient passed speech and swallow It is recommended that patient should follow up with neurology as outpatient upon discharge. Case seen, discussed and reviewed with Dr. Matos. Harsh Marley PGY2 <Eduardo Matos - Last Filed: 06/30/17 13:43> Objective - Vital Signs/Intake and Output Vital Signs (last 24 hours): Temp Pulse Resp BP Pulse Ox 98.2 F 71 20 119/63 97 06/30/17 06:00 06/30/17 12:02 06/30/17 06:00 06/30/17 12:02 06/30/17 06:00 Intake and Output: 06/30/17 06/30/17 06:59 18:59 Intake Total 720 Balance 720 - Medications Medications: Current Medications Acetaminophen/Butalbital/Caffeine (Fioricet) 1 tab PO Q4H PRN PRN Reason: Headache Last Admin: 06/29/17 13:06 Dose: 1 tab Aspirin (Ecotrin) 325 mg PO DAILY [facility] Last Admin: 06/30/17 12:05 Dose: 325 mg Atorvastatin Calcium (Lipitor) 80 mg PO DIN [facility] Last Admin: 06/29/17 18:51 Dose: 80 mg Bupropion HCl (Wellbutrin) 300 mg PO DAILY [facility] Last Admin: 06/30/17 12:00 Dose: 300 mg Clopidogrel Bisulfate (Plavix) 75 mg PO DAILY [facility] Heparin Sodium (Porcine) (Heparin) 5,000 units SC Q12 [facility] PRN Reason: Protocol Last Admin: 06/30/17 12:03 Dose: 5,000 units Insulin Human Regular (Humulin R High) 0 units SC ACHS [facility] PRN Reason: Protocol Last Admin: 06/30/17 12:35 Dose: 12 units Levothyroxine Sodium (Synthroid) 200 mcg PO ACB [facility] Last Admin: 06/30/17 08:30 Dose: 200 mcg Losartan Potassium (Cozaar) 25 mg PO DAILY [facility] Last Admin: 06/30/17 12:01 Dose: 25 mg Metformin HCl (Glucophage) 1,000 mg PO BID [facility] Last Admin: 06/30/17 12:02 Dose: 1,000 mg Metoprolol Succinate (Toprol Xl) 50 mg PO BRK [facility] Last Admin: 06/30/17 12:02 Dose: 50 mg - Labs Labs: 06/30/17 13:28 Attending/Attestation - Attestation I have personally seen and examined this patient.: Yes I have fully participated in the care of the patient.: Yes I have reviewed all pertinent clinical information, including history, physical exam and plan: Yes
[2017-06-30] MEDS: Insulin Reg-HIGH-Coverage SC SCH ×4 (08:15→21:28)
[2017-06-30] MEDS: Levothyroxine 200 MCG TAB PO SCH (08:30)
[2017-06-30] MEDS: Metoprolol Succinate 50 mg XL Tab PO SCH (12:02)
[2017-06-30] MEDS: Aspirin 325 mg EC Tablets PO SCH (12:05)
[2017-06-30 13:39] LABS: HEMATOCRIT 36.2 % (36.0-48.0); MEAN CELL VOLUME 85.6 fl (80.0-105.0); MEAN CORPUSCULAR HEMOGLOBIN 28.6 pg (25.0-35.0); MEAN CORPUSCULAR HGB CONC 33.4 g/dl (31.0-37.0); MEAN PLATELET VOLUME 11.4 fl (7.0-11.0); RED CELL DISTRIBUTION WIDTH 15.1 % (11.5-14.5); WHITE BLOOD COUNT 7.3 10^3/ul (4.5-11.0)
[2017-06-30 13:43] LABS: ALB/GLOB RATIO 1.4 (1.1-1.8); ALKALINE PHOSPHATASE 73 U/L (38-126); ALT/SGPT 39 U/L (7-56); AST/SGOT 33 U/L (14-36); BILIRUBIN,TOTAL 0.4 mg/dL (0.2-1.3); BLOOD UREA NITROGEN 17 mg/dL (7-21); CALCIUM 9.2 mg/dL (8.4-10.5); CARBON DIOXIDE 23 mmol/L (21-33); CHLORIDE 105 mmol/L (98-107); GFR AFRICAN-AMERICAN > 60; GLUCOSE,RANDOM 241 mg/dL (70-110); POTASSIUM 4.5 mmol/L (3.6-5.0); SODIUM 139 mmol/L (132-148); TOTAL PROTEIN 7.1 g/dL (5.8-8.3)
--- NOTE | 2017-06-30 14:50 | CON ---
DATE: 06/30/2017 REASON FOR CONSULTATION: Obstructive sleep apnea. REFERRING PHYSICIAN: Dr. Dutton HISTORY OF PRESENT ILLNESS: The patient is a 61-year-old female, with past medical history significant for transient ischemic attack, obstructive sleep apnea, diabetes mellitus, hypertension, migraine headaches, who presents to [facility] with a 2-day history of worsening headaches and generalized weakness. In the emergency room, a CT scan of the brain was done. The CT scan of the brain revealed an acute cerebellar infarct. The patient was thus admitted for additional evaluation. There is no history of shortness of breath at rest or dyspnea on exertion. There is no history of cough or sputum production. There is no history of chest pain, coughing up of blood, or chest pain - made worse with deep respirations. There is no history of temperatures, chills or infectious exposure. There is no history of night sweats, weight loss or appetite change prior to the above events. No history of calf pains. No history of syncope or diaphoresis. No history of recent travel or trauma. REVIEW OF SYSTEMS: No history of nausea, vomiting or diarrhea. No acute urinary symptoms. Rest of the review of system is negative. ALLERGIES: No known allergies. SOCIAL HISTORY: Positive for tobacco and negative for alcohol. FAMILY HISTORY: No inheritable diseases. HOME MEDICATIONS: Include Ecotrin, insulin, Proventil HFA, Motrin, Flovent, Reglan, Synthroid, Zocor, Glucophage, Cozaar, Wellbutrin, Topamax, clonazepam. PHYSICAL EXAMINATION: GENERAL: The patient appears comfortable this morning. She is not short of breath at rest. VITAL SIGNS: Temperature is 98.5, pulse 64, respirations 18, blood pressure 125/76. Oxygen saturation on room air is 97%. HEENT: Normocephalic, atraumatic. No JVD. CARDIOVASCULAR: Positive S1, S2. No S3 gallop. LUNGS: Clear bilaterally. GI: Abdomen is soft, nontender and nondistended. Bowel sounds are positive. SKIN: No acute rash. EXTREMITIES: No clubbing, cyanosis or edema. Calves are nontender to palpation. NEUROLOGIC: Exam limited at the present time. PERTINENT LABORATORY DATA: MRI was also done of the brain yesterday. There are multifocal acute infarctions within the left cerebellar artery territory. CBC: White count 8.1, hemoglobin 12.6, hematocrit 37.0, platelets of 283. Complete metabolic profile: Chloride 109, glucose 187, AST 39. Rest of the metabolic profile is within normal limits. ASSESSMENT: 1. Cerebellar infarct. 2. Obstructive sleep apnea. 3. Hypertension. 4. Diabetes mellitus. PLAN: The patient presents to [facility] with a 2-day history of worsening headaches and generalized weakness. As above, a brain MRI was done yesterday. The brain MRI revealed an acute cerebellar infarct. The patient was thus admitted for additional evaluation. I would continue with the treatment and recommendations as per neurology. Input by Dr. Matos is noted. On physical exam, her lungs are clear. Oxygen saturation on room air is 97%. She does use her CPAP machine nightly at home. The patient was advised to have her daughter bring in her own machine from home. She agrees. The patient does feel better this morning, and is clinically improved. I will discuss the above with the attending physician. Thank you very much for this pulmonary consultation. Benjamin Kaba MD [email or web address]
--- NOTE | 2017-06-30 15:29 | CON ---
DATE: 06/30/2017 REASON FOR CONSULTATION: Hypertension, left cerebral ischemic infarct. HISTORY OF PRESENT ILLNESS: A 61-year-old female admitted with unsteady gait, also she had migraine headache and she was having shaking of leg and arm at home. The patient denied any chest pain, palpitation, or shortness of breath associated with these episode. The patient known to have diabetes mellitus, which have been poorly controlled, hypertension, migraine headache. The patient also has history of TIA type symptoms in the past. The patient is right now lying flat in bed without any cardiac symptoms. PAST MEDICAL HISTORY: Positive for hypertension, diabetes mellitus, TIA, sleep apnea, COPD, hypothyroidism, overweight. PAST SURGICAL HISTORY: The patient had thyroid surgery in the past. PERSONAL HISTORY: Denies smoking. Denies drinking. ALLERGIES: DENIES ANY ALLERGIES. FAMILY HISTORY: Positive for diabetes mellitus. HOME MEDICATIONS: The patient is on levothyroxine 200 mcg p.o. daily, Zonegran 100 mg daily, Cozaar 25 daily, aspirin 81 mg daily, metformin 1000 mg b.i.d., Zocor 20 mg daily, Victoza 18 mg subcutaneous daily, Topamax 25 mg daily. REVIEW OF SYSTEMS: All other systems reviewed. Positive mentioned in the history. The patient states that she saw Dr. Patton with the field underwriter and he ran test about 4 months ago and she was told that it was negative. She said she had echo under Holter monitor. She never had any stress test. PHYSICAL EXAMINATION VITAL SIGNS: Blood pressure 119/63, respirations 20, pulse of 78, temperature 98.2. HEENT: Head is normocephalic. Eyes: Pupils are normal. Conjunctivae normal. Nose and throat normal. NECK: JVP low. Carotid equal. THORAX: AP diameter normal. LUNGS: Clear. CARDIOVASCULAR: S1 and S2. No rub, murmur, or gallop. No click. ABDOMEN: Soft and nontender. No organomegaly. Bowel sounds normal. EXTREMITIES: No clubbing. No cyanosis. LABORATORY DATA: Lab shows WBC 7.3, hemoglobin 12.1, hematocrit 36.2, platelet 254. Sodium 139, potassium 4.5, BUN 17, creatinine 0.8, her random sugar 241, calcium, bilirubin, AST, ALT, total protein, and albumin were normal. Carotid artery bilateral 20%-39% proximal ICA stenosis, antegrade for both vertebral arteries. CAT scan of the head, there is a lesion at the central left cerebellar hemisphere suspicious of infarcts. Brain MRI shows multifocal acute infarcts in the left superior cerebellar artery territory. This pattern may be associated with MR etiology, mild vasogenic edema surrounding the largest area of acute infarction, which measured about 1.5 cm, minimum artifact on the fourth ventricle without evidence of hydrocephalus of midline shift, moderate chronic microangiopathic changes, and moderate age related global parenchymal volume loss. DIAGNOSES: Left cerebral ischemic infarct, question about molecular phenomena, history of transient ischemic attack, diabetes mellitus type 2, hypertension, migraine headaches. PLAN: The patient will have echocardiogram today verbal study. In the meantime, the patient is on losartan 25 mg daily, aspirin 325 daily, metformin 1000 mg b.i.d., heparin 5000 units subcu q.12 hours, Lipitor 80 mg daily, Plavix 75 mg daily, Synthroid 200 mcg p.o. daily, metoprolol 50 p.o. daily, long acting Wellbutrin 300 mg p.o. daily. We will continue these medications and the patient will have echo with verbal study today and we will follow that. We will follow with you. Bj Evans MD
--- NOTE | 2017-06-30 23:45 | CP.PCM.PN ---
Subjective - Date & Time of Evaluation Date of Evaluation: 06/30/17 Time of Evaluation: 17:00 - Subjective Subjective: Comfortable in bed. Ambulating with support. No difficulty in swallowing. Passed the swallow test. Echo done, report awaited. No slurring of speech. No chest pain. Objective - Vital Signs/Intake and Output Vital Signs (last 24 hours): Temp Pulse Resp BP Pulse Ox 98.4 F 72 18 110/74 99 06/30/17 17:32 06/30/17 17:32 06/30/17 17:32 06/30/17 17:32 06/30/17 17:32 Intake and Output: 06/30/17 07/01/17 18:59 06:59 Intake Total 660 Balance 660 - Medications Medications: Current Medications Acetaminophen/Butalbital/Caffeine (Fioricet) 1 tab PO Q4H PRN PRN Reason: Headache Last Admin: 06/29/17 13:06 Dose: 1 tab Aspirin (Ecotrin) 325 mg PO DAILY [facility] Last Admin: 06/30/17 12:05 Dose: 325 mg Atorvastatin Calcium (Lipitor) 80 mg PO DIN [facility] Last Admin: 06/30/17 17:21 Dose: 80 mg Bupropion HCl (Wellbutrin) 300 mg PO DAILY [facility] Last Admin: 06/30/17 12:00 Dose: 300 mg Clopidogrel Bisulfate (Plavix) 75 mg PO DAILY [facility] Heparin Sodium (Porcine) (Heparin) 5,000 units SC Q12 [facility] PRN Reason: Protocol Last Admin: 06/30/17 21:24 Dose: 5,000 units Insulin Human Regular (Humulin R High) 0 units SC ACHS [facility] PRN Reason: Protocol Last Admin: 06/30/17 21:28 Dose: Not Given Levothyroxine Sodium (Synthroid) 200 mcg PO ACB [facility] Last Admin: 06/30/17 08:30 Dose: 200 mcg Losartan Potassium (Cozaar) 25 mg PO DAILY [facility] Last Admin: 06/30/17 12:01 Dose: 25 mg Metformin HCl (Glucophage) 1,000 mg PO BID [facility] Last Admin: 06/30/17 17:20 Dose: 1,000 mg Metoprolol Succinate (Toprol Xl) 50 mg PO BRK [facility] Last Admin: 06/30/17 12:02 Dose: 50 mg - Labs Labs: 06/30/17 13:28 06/30/17 13:28 - Constitutional Appears: Well - Head Exam Head Exam: ATRAUMATIC, NORMAL INSPECTION, NORMOCEPHALIC - Eye Exam Eye Exam: Normal appearance Pupil Exam: NORMAL ACCOMODATION - ENT Exam ENT Exam: Mucous Membranes Moist - Neck Exam Neck Exam: Normal Inspection - Respiratory Exam Respiratory Exam: Clear to Ausculation Bilateral, NORMAL BREATHING PATTERN - Cardiovascular Exam Cardiovascular Exam: REGULAR RHYTHM, +S1, +S2 - GI/Abdominal Exam GI & Abdominal Exam: Soft, Normal Bowel Sounds - Extremities Exam Extremities Exam: Normal Inspection - Back Exam Back Exam: NORMAL INSPECTION - Neurological Exam Neurological Exam: Alert, Awake, Normal Gait, Oriented x3 - Skin Skin Exam: Normal Color, Warm Assessment and Plan - Assessment and Plan (Free Text) Assessment: 1. Embolic stroke, left cerebellar area. neurology consult appreciated. Note reviewed. plavix will be started tomorrow as per neurology. Multiple TIA this year. Hypercoaguable work up ordered. if positive for major risk factor, she will be started on anticoagulation. 2. CV : echo done. report awaited. cardiology consult appreciated. Note reviewed. 3. Bedside PT. 4. discharge planning. She prefers to go home. Out patient PT recommended by PT. 5. Discharge when cleared by cardiology, neurology.
--- NOTE | 2017-06-30 23:52 | CP.PCM.PN ---
Subjective - Date & Time of Evaluation Date of Evaluation: 06/29/17 Time of Evaluation: 18:00 - Subjective Subjective: Comfortable in bed. not ambulating. No difficulty in swallowing. Complaining of tingling, numbness of hands and feet. DM II, uncontrolled, Hb A1 C elevated to 9.6. Objective - Vital Signs/Intake and Output Vital Signs (last 24 hours): Temp Pulse Resp BP Pulse Ox 98.4 F 72 18 110/74 99 06/30/17 17:32 06/30/17 17:32 06/30/17 17:32 06/30/17 17:32 06/30/17 17:32 Intake and Output: 06/30/17 07/01/17 18:59 06:59 Intake Total 660 Balance 660 - Medications Medications: Current Medications Acetaminophen/Butalbital/Caffeine (Fioricet) 1 tab PO Q4H PRN PRN Reason: Headache Last Admin: 06/29/17 13:06 Dose: 1 tab Aspirin (Ecotrin) 325 mg PO DAILY [facility] Last Admin: 06/30/17 12:05 Dose: 325 mg Atorvastatin Calcium (Lipitor) 80 mg PO DIN [facility] Last Admin: 06/30/17 17:21 Dose: 80 mg Bupropion HCl (Wellbutrin) 300 mg PO DAILY [facility] Last Admin: 06/30/17 12:00 Dose: 300 mg Clopidogrel Bisulfate (Plavix) 75 mg PO DAILY [facility] Heparin Sodium (Porcine) (Heparin) 5,000 units SC Q12 [facility] PRN Reason: Protocol Last Admin: 06/30/17 21:24 Dose: 5,000 units Insulin Human Regular (Humulin R High) 0 units SC ACHS [facility] PRN Reason: Protocol Last Admin: 06/30/17 21:28 Dose: Not Given Levothyroxine Sodium (Synthroid) 200 mcg PO ACB [facility] Last Admin: 06/30/17 08:30 Dose: 200 mcg Losartan Potassium (Cozaar) 25 mg PO DAILY [facility] Last Admin: 06/30/17 12:01 Dose: 25 mg Metformin HCl (Glucophage) 1,000 mg PO BID [facility] Last Admin: 06/30/17 17:20 Dose: 1,000 mg Metoprolol Succinate (Toprol Xl) 50 mg PO BRK [facility] Last Admin: 06/30/17 12:02 Dose: 50 mg - Labs Labs: 06/30/17 13:28 06/30/17 13:28 - Constitutional Appears: Well, No Acute Distress - Head Exam Head Exam: ATRAUMATIC, NORMAL INSPECTION, NORMOCEPHALIC - Eye Exam Eye Exam: Normal appearance - ENT Exam ENT Exam: Mucous Membranes Moist, Normal Exam - Neck Exam Neck Exam: Normal Inspection - Respiratory Exam Respiratory Exam: Clear to Ausculation Bilateral, NORMAL BREATHING PATTERN - Cardiovascular Exam Cardiovascular Exam: REGULAR RHYTHM, +S1, +S2 - GI/Abdominal Exam GI & Abdominal Exam: Soft, Normal Bowel Sounds - Extremities Exam Extremities Exam: Normal Capillary Refill, Normal Inspection - Back Exam Back Exam: NORMAL INSPECTION - Psychiatric Exam Psychiatric exam: Normal Affect - Skin Skin Exam: Normal Color, Warm Assessment and Plan - Assessment and Plan (Free Text) Assessment: 1. Embolic stroke in left cerebellar area. MRI reviewed. On aspirin. Will follow neuro recommendations. B/L carotid US ordered. 2. CV : stable. cardiology consult requested for embolic stroke. CV stable. 3. DVT prophylaxis : Heparin 5000 u SQ Q 12 hrs. 4. Bed side PT ordered.
--- NOTE | 2017-07-01 07:06 | CP.PCM.PN ---
<Ana Marley - Last Filed: 07/01/17 09:14> Subjective - Date & Time of Evaluation Date of Evaluation: 07/01/17 Time of Evaluation: 06:59 - Subjective Subjective: Neurology Progress Note for Harsh Higuera PGY2 Patient seen and examined at bedside. As per nursing, there were no acute overnight events. Patient states she feels well today. She denies having any vision changes, headache, CP, SOB, n/v/d, numbness/tingling, fever or chills. Yesterday daughter was at bedside. Dr. Matos and I had an at length discussion about the importance of better control of her risk factors which include better control of her diabetes, BP and cholesterol. Patient advised to increase her diet and exercise. She reports that she sees Dr. Avendano, [facility], as outpatient. Objective - Vital Signs/Intake and Output Vital Signs (last 24 hours): Temp Pulse Resp BP Pulse Ox 98.4 F 72 18 110/74 99 06/30/17 17:32 06/30/17 17:32 06/30/17 17:32 06/30/17 17:32 06/30/17 17:32 Intake and Output: 06/30/17 07/01/17 18:59 06:59 Intake Total 660 Balance 660 - Medications Medications: Current Medications Acetaminophen/Butalbital/Caffeine (Fioricet) 1 tab PO Q4H PRN PRN Reason: Headache Last Admin: 06/29/17 13:06 Dose: 1 tab Aspirin (Ecotrin) 325 mg PO DAILY [facility] Last Admin: 06/30/17 12:05 Dose: 325 mg Atorvastatin Calcium (Lipitor) 80 mg PO DIN [facility] Last Admin: 06/30/17 17:21 Dose: 80 mg Bupropion HCl (Wellbutrin) 300 mg PO DAILY [facility] Last Admin: 06/30/17 12:00 Dose: 300 mg Clopidogrel Bisulfate (Plavix) 75 mg PO DAILY [facility] Heparin Sodium (Porcine) (Heparin) 5,000 units SC Q12 [facility] PRN Reason: Protocol Last Admin: 06/30/17 21:24 Dose: 5,000 units Insulin Human Regular (Humulin R High) 0 units SC ACHS [facility] PRN Reason: Protocol Last Admin: 06/30/17 21:28 Dose: Not Given Levothyroxine Sodium (Synthroid) 200 mcg PO ACB [facility] Last Admin: 06/30/17 08:30 Dose: 200 mcg Losartan Potassium (Cozaar) 25 mg PO DAILY [facility] Last Admin: 06/30/17 12:01 Dose: 25 mg Metformin HCl (Glucophage) 1,000 mg PO BID [facility] Last Admin: 06/30/17 17:20 Dose: 1,000 mg Metoprolol Succinate (Toprol Xl) 50 mg PO BRK [facility] Last Admin: 06/30/17 12:02 Dose: 50 mg - Labs Labs: 06/30/17 13:28 06/30/17 13:28 - Constitutional Appears: No Acute Distress - Head Exam Head Exam: ATRAUMATIC, NORMAL INSPECTION, NORMOCEPHALIC - Eye Exam Eye Exam: EOMI, Normal appearance, PERRL Pupil Exam: NORMAL ACCOMODATION, PERRL - ENT Exam ENT Exam: Mucous Membranes Moist - Neck Exam Neck Exam: Full ROM - Respiratory Exam Respiratory Exam: Clear to Ausculation Bilateral, NORMAL BREATHING PATTERN. absent: Rales, Rhonchi, Wheezes - Cardiovascular Exam Cardiovascular Exam: REGULAR RHYTHM, +S1, +S2. absent: Gallop, Rubs, Murmur - GI/Abdominal Exam GI & Abdominal Exam: Soft, Normal Bowel Sounds. absent: Rigid, Tenderness, Mass , Rebound - Extremities Exam Extremities Exam: Normal Inspection. absent: Calf Tenderness, Pedal Edema - Neurological Exam Neurological Exam: Alert, Awake, CN II-XII Intact, Normal Gait, Oriented x3. absent: Abnormal Gait, Motor Sensory Deficit Neuro motor strength exam: Left Upper Extremity: 5, Right Upper Extremity: 5, Left Lower Extremity: 5, Right Lower Extremity: 5 - Psychiatric Exam Psychiatric exam: Normal Affect, Normal Mood - Skin Skin Exam: Dry, Intact, Normal Color, Warm Assessment and Plan - Assessment and Plan (Free Text) Assessment: This is a 61Y F with PMH HTN, HLD, hypothryroidism, uncontrolled DM, sleep apnea and migraines who was found to have L superior cerebellar infarct seen on MRI which is secondary to atherosclerotic disease from uncontrolled risk factors. Patient does not have any focal neurological deficits at this time. MRI showed embolic stroke, which is usual cardiac in origin. Carotid dopplers showed 20-39% stenosis bilaterally. Headache is most likely a migraine as well as stroke which is relieved by Fiorecet. Plan: - ASA, Plavix - Echo showed EF of of 53% with normal LV function - Maintain Euglycemia (140-180s) - Lipitor 80mg for 3 weeks then decrease to 40mg - Continue physical therapy - Follow up with endocrinology as outpatient for better glucose control (A1c: 9.6) PT recommended outpatient physical therapy. It is recommended that patient should follow up with neurology as outpatient upon discharge. Case seen, discussed and reviewed with Dr. Matos. Harsh Marley PGY2 <Eduardo Matos - Last Filed: 07/01/17 11:56> Objective - Vital Signs/Intake and Output Vital Signs (last 24 hours): Temp Pulse Resp BP Pulse Ox 97.6 F 72 20 116/62 95 07/01/17 09:05 07/01/17 11:48 07/01/17 09:05 07/01/17 11:48 07/01/17 09:05 Intake and Output: 07/01/17 07/01/17 06:59 18:59 Intake Total 660 Balance 660 - Medications Medications: Current Medications Acetaminophen/Butalbital/Caffeine (Fioricet) 1 tab PO Q4H PRN PRN Reason: Headache Last Admin: 06/29/17 13:06 Dose: 1 tab Aspirin (Ecotrin) 325 mg PO DAILY [facility] Last Admin: 07/01/17 11:47 Dose: 325 mg Atorvastatin Calcium (Lipitor) 80 mg PO DIN [facility] Last Admin: 06/30/17 17:21 Dose: 80 mg Bupropion HCl (Wellbutrin) 300 mg PO DAILY [facility] Last Admin: 07/01/17 11:47 Dose: 300 mg Clopidogrel Bisulfate (Plavix) 75 mg PO DAILY [facility] Last Admin: 07/01/17 11:47 Dose: 75 mg Heparin Sodium (Porcine) (Heparin) 5,000 units SC Q12 [facility] PRN Reason: Protocol Last Admin: 07/01/17 11:48 Dose: 5,000 units Insulin Human Regular (Humulin R High) 0 units SC ACHS [facility] PRN Reason: Protocol Last Admin: 07/01/17 11:49 Dose: 10 units Levothyroxine Sodium (Synthroid) 200 mcg PO ACB [facility] Last Admin: 07/01/17 08:28 Dose: 200 mcg Losartan Potassium (Cozaar) 25 mg PO DAILY [facility] Last Admin: 07/01/17 11:48 Dose: 25 mg Metformin HCl (Glucophage) 1,000 mg PO BID [facility] Last Admin: 07/01/17 11:47 Dose: 1,000 mg Metoprolol Succinate (Toprol Xl) 50 mg PO BRK [facility] Last Admin: 07/01/17 08:28 Dose: 50 mg - Labs Labs: 06/30/17 13:28 06/30/17 13:28 Attending/Attestation - Attestation I have personally seen and examined this patient.: Yes I have fully participated in the care of the patient.: Yes I have reviewed all pertinent clinical information, including history, physical exam and plan: Yes
--- NOTE | 2017-07-01 07:46 | CARD ---
APPROVED REPORT EXAM: Two-dimensional and M-mode echocardiogram with Doppler and color Doppler. Other Information Quality : AverageRhythm : INDICATION EMBOLIC CVA 2D DIMENSIONS Left Atrium (2D)4.4 (1.6-4.0cm)IVSd0.9 (0.7-1.1cm) LVDd3.5 (3.9-5.9cm)PWd0.9 (0.7-1.1cm) LVDs2.5 (2.5-4.0cm)FS (%) 26.6 % LVEF (%)53.0 (>50%) M-Mode DIMENSIONS Aortic Root3.30 (2.2-3.7cm)Aortic Cusp Exc.1.90 (1.5-2.0cm) Aortic Valve AoV Peak Nqfghqth807.0cm/s Mitral Valve MV E Qbdlszks52.4cm/sMV A Xgiwuyto503.0cm/sE/A ratio0.9 TDI Lateral E' Peak V9.36cm/sMedial E' Peak V6.24cm/sE/Lateral E'9.2 E/Medial E'13.8 Pulmonary Valve PV Peak Xxmrrzmg41.1cm/sPV Peak Grad.2mmHg Tricuspid Valve TR Peak [id number]/sRAP [id number] Peak Gr.25mmHg [id number] LEFT VENTRICLE The left ventricle is normal size. There is normal left ventricular wall thickness. The left ventricular function is normal. The left ventricular ejection fraction is within the normal range. There is normal LV segmental wall motion. RIGHT VENTRICLE The right ventricle is normal size. ATRIA The left atrium is mildly dilated. The right atrium size is normal. The interatrial septum is intact with no evidence for an atrial septal defect. AORTIC VALVE The aortic valve is normal in structure. MITRAL VALVE The mitral valve is normal in structure. Mitral regurgitation is trace. TRICUSPID VALVE The tricuspid valve is normal in structure. There is trace tricuspid regurgitation. GREAT VESSELS The aortic root is normal in size. PERICARDIAL EFFUSION There is no pericardial effusion. <Conclusion> The left ventricle is normal size. There is normal left ventricular wall thickness. The left ventricular function is normal. Bubble study done: no shunt seen.
[2017-07-01] MEDS: Metoprolol Succinate 50 mg XL Tab PO SCH (08:28)
[2017-07-01] MEDS: Levothyroxine 200 MCG TAB PO SCH (08:28)
[2017-07-01] MEDS: Insulin Reg-HIGH-Coverage SC SCH ×2 (08:29→11:49)
[2017-07-01 09:07] VITALS: RESP 20; TEMP 97.6; O2SAT 95
--- NOTE | 2017-07-01 11:36 | DS ---
DISCHARGE DIAGNOSES: 1. Thromboembolic stroke in the left cerebellum hemisphere. 2. Possible hypercoagulable state. 3. Uncontrolled diabetes mellitus. 4. Hypertension. 5. Peripheral neuropathy. HOSPITAL COURSE: The patient was admitted with generalized weakness, slurring of speech. The speech recovered when she arrived in the ER. MRI of the brain was consistent with multiple areas of ischemic infarction consistent with embolic infarction. She was evaluated by Neurology and Cardiology. Echocardiogram was negative. There was no source of emboli. Neurology recommended aspirin and Plavix. She was evaluated by Physical Therapy. She is walking without any discomfort. She is being discharged in stable condition. PHYSICAL EXAMINATION ON DISCHARGE: GENERAL: Comfortable in bed, in no acute distress. VITAL SIGNS: Temperature 98.7, heart rate 80 per minute, blood pressure 130/80. HEENT: Normal. NECK: Supple. No lymphadenopathy. CHEST: Air entry present and equal bilateral. No added sound. CARDIOVASCULAR: S1 and S2 normal. No murmur, no gallop. ABDOMEN: Soft, nontender. No hepatosplenomegaly. EXTREMITIES: No edema. MARKET RESEARCH COORDINATOR: Alert and oriented x3. No focal deficit or motor deficit. SPINE: Normal. SKIN: No petechiae. No rash. PSYCHIATRY: Mood is normal. CONDITION ON DISCHARGE: Stable. DISPOSITION: Discharged to home. DISCHARGE MEDICATIONS: Aspirin 81 mg daily, Plavix 75 mg daily, Wellbutrin 300 mg daily, Synthroid 200 mcg daily, Cozaar 25 mg daily, metformin 1000 mg p.o. b.i.d., and metoprolol 50 mg p.o. daily. Followup with in one week and follow up with Dr. Dutton for hypercoagulable workup in one week. Time spent in preparing discharge and coordinating care is 60 minutes. Ann Marie Dutton MD cc:
[2017-07-01] MEDS: Aspirin 325 mg EC Tablets PO SCH (11:47)
[2017-07-01 11:53] VITALS: BP 116/62; PULSE 72
--- NOTE | 2017-07-01 15:47 | PN ---
DATE: 07/01/2017 SUBJECTIVE: The patient appears comfortable at rest. She is not short of breath. PHYSICAL EXAMINATION: VITAL SIGNS: Temperature is 98.4, pulse 72, respirations 18, blood pressure 110/74. Oxygen saturation on room air is 99%. HEENT: Normocephalic, atraumatic. No JVD. CARDIOVASCULAR: Positive S1, S2. No S3 gallop. LUNGS: Clear bilaterally. EXTREMITIES: No clubbing, cyanosis or edema. Calves are nontender to palpation. GI: Abdomen is soft, nontender and nondistended. Bowel sounds are positive. SKIN: No acute rash. NEUROLOGIC: Exam limited at the present time. IMPRESSION: 1. Cerebellar infarct. 2. Obstructive sleep apnea. 3. Hypertension. 4. Diabetes mellitus. PLAN: The patient appears comfortable this morning. She is not short of breath at rest. She still does complain of a headache--but less. She is feeling a little better overall. On physical exam, her lungs remain clear. Oxygen saturation on room air is 99%. I would continue with the nightly CPAP. The patient agrees. Cardiology and Neurologic evaluations are noted. Clinical status of the patient is improved overall. I will discuss the above with the attending physician. Benjamin Kaba MD MTDD
--- NOTE | 2017-07-01 21:39 | PN ---
DATE: 07/01/2017 REASON FOR CONSULTATION AND FOLLOWUP: Hypertension, left CVA, and cerebral ischemic infract. SUBJECTIVE: The patient is lying flat in the bed, family is at bedside. Denies any chest pain, shortness of breath, or any palpitations. PHYSICAL EXAMINATION: GENERAL: She is not in apparent distress. VITAL SIGNS: Temperature afebrile, heart rate 72, blood pressure 106/62. HEENT: PERRLA. Extraocular muscles intact. NECK: Supple. No carotid bruit or no thyromegaly. CHEST: Clear to auscultation. HEART: S1 and S2, regular. ABDOMEN: Soft. EXTREMITIES: Clubbing and cyanosis negative. LABORATORY DATA: Blood workup as follows; WBC 7.8, hemoglobin 12.2, hematocrit 36.2, and platelet count 254. Chemistry shows sodium 139, potassium 4.1, chloride 105, carbon dioxide 23, anion gap of 16, BUN 17, and creatinine 0.8. The patient had echocardiography done yesterday, read by Dr. Lentz and that showed left ventricular size is normal and normal left ventricular function, bubble studies and no shunt seen, mitral regurgitations are trace. RECOMMENDATIONS: Continue Plavix. Change aspirin 325 from baby aspirin. Continue losartan. We will follow with you. Thank you Dr. Dutton for providing us the opportunity in taking care of Neida Tineo. Bj Hirsch MD
== END 2017-07-01 14:51 | disposition home or self-care (01) | DRG 66 ==
LOC: ED 12:20 → ERH 16:56 → 3RSO 19:36
PROVIDERS: ADMIT Internal Medicine Medical Oncology; ATTEND Internal Medicine Medical Oncology
DX: I63.442 Cerebral infarction due to embolism of left cerebellar artery (principal); E11.42 Type 2 diabetes mellitus with diabetic polyneuropathy; G43.909 Migraine, unspecified, not intractable, without status migrainosus; I10 Essential (primary) hypertension; E11.65 Type 2 diabetes mellitus with hyperglycemia; R47.81 Slurred speech; E03.9 Hypothyroidism, unspecified; J44.9 Chronic obstructive pulmonary disease, unspecified; G47.33 Obstructive sleep apnea (adult) (pediatric); G44.209 Tension-type headache, unspecified, not intractable; H54.8 Legal blindness, as defined in USA; E78.00 Pure hypercholesterolemia, unspecified; Z86.73 Personal history of transient ischemic attack (TIA), and cerebral infarction without residual deficits; Z79.82 Long term (current) use of aspirin; Z79.4 Long term (current) use of insulin

== ENCOUNTER 2018-08-02 12:00 | Emergency (ER) | payer MEDICARE, MEDICAID ==
[2018-08-02 12:10] VITALS: BMI 35.6
[2018-08-02 12:13] VITALS: BP 115/70; TEMP 98.3
--- NOTE | 2018-08-02 12:24 | ED PDOC ---
Arrival/HPI - General Chief Complaint: Medical Clearance Time Seen by Provider: 08/02/18 12:02 Historian: Patient - History of Present Illness Narrative History of Present Illness (Text): 08/02/18 12:20 62 year old female, with past medical history COPD, sleep apnea, TIA, CVA, diabetes, hypothyroidism and gastric bypass, referred to the Emergency Department by Dr. Dutton for evaluation of hypotension prior to arrival. Patient reportedly had a systolic blood pressure of [address] Dutton's office and was subsequently sent to the ED for evaluation. Upon arrival to the ED, patient has a normal blood pressure with a systolic of 115. Patient denies any somatic complaints and expresses to go home to her dog. Patient denies any fever, chills, nausea, vomiting, diarrhea, abdominal pain, chest pain, shortness of breath, cough, headache, dizziness, neck pain, back pain, or any other complaints. PMD: Dr. Dutton Time/Duration: Prior to Arrival Symptom Onset: Gradual Symptom Course: Resolved Activities at Onset: Light Context: Other (Dr. Dutton's office) Past Medical History - Provider Review Nursing Documentation Reviewed: Yes - Infectious Disease Hx of Infectious Diseases: None - Cardiac Hx Hypotension: Yes - Pulmonary Hx Chronic Obstructive Pulmonary Disease (COPD): Yes - Neurological HX Cerebrovascular Accident: Yes (R sided weakness) - HEENT Hx HEENT Disorder: Yes Hx Blind: Yes (legally blind) - Renal Hx Renal Disorder: No - Endocrine/Metabolic Hx Diabetes Mellitus Type 2: Yes Hx Hypothyroidism: Yes - Hematological/Oncological Hx Blood Disorders: No - Integumentary Hx Dermatological Disorder: No - Musculoskeletal/Rheumatological Hx Musculoskeletal Disorders: Yes Hx Back Pain: Yes Hx Falls: No - Gastrointestinal Hx Gastrointestinal Disorders: No - Genitourinary/Gynecological Hx Genitourinary Disorders: No - Psychiatric Hx Depression: Yes Hx Substance Use: No - Surgical History Hx Thyroidectomy: Yes (2011) - Anesthesia Hx Anesthesia: Yes Hx Anesthesia Reactions: No Hx Malignant Hyperthermia: No Family/Social History - Physician Review Nursing Documentation Reviewed: Yes Family/Social History: Unknown Family HX Smoking Status: Never Smoked Hx Alcohol Use: No Hx Substance Use: No Allergies/Home Meds Allergies/Adverse Reactions: Allergies No Known Allergies Allergy (Verified 08/02/18 12:10) Home Medications: Home Meds Medication Instructions Recorded Confirmed RX: Albuterol Sulfate [Proventil 0.09 mg IH PRN PRN 03/29/16 06/28/17 Hfa] RX: Fluticasone Propionate 2 puff IH PRN PRN 03/29/16 06/28/17 [Flovent Hfa] RX: Levothyroxine Sodium 200 mcg PO DAILY 03/29/16 06/28/17 [Synthroid] RX: Losartan [Cozaar] 25 mg PO DAILY 03/29/16 06/28/17 RX: Metoclopramide [Reglan] 10 mg PO DAILY 03/29/16 06/28/17 RX: Metoprolol Succinate XL 50 mg PO BRK 03/29/16 06/28/17 [Toprol XL] RX: buPROPion [Wellbutrin] 300 mg PO DAILY 03/29/16 06/28/17 RX: metFORMIN [glucOPHAGE] 1,000 mg PO BID 03/29/16 06/28/17 RX: Clonazepam [Klonopin] 0.5 mg PO 06/28/17 RX: Clotrimazole 1% Cream 0 applic TOP BID 06/28/17 06/28/17 [Lotrimin 1% CREAM] RX: Cyanocobalamin [Vitamin B12 1,000 mcg PO DAILY 06/28/17 06/28/17 1000 mcg Tab] RX: Dexamethasone/Tobramycin 5 ml OP 06/28/17 [Tobradex Opht Susp] RX: Ibuprofen [Motrin Ib] 600 mg PO BID 06/28/17 06/28/17 RX: Insulin Aspart/Insulin Aspar 125 units SC BID 06/28/17 06/28/17 [Novolog Mix 70/30 (70/30 units/ml)] RX: Insulin Degludec [Tresiba 0 unit SQ 06/28/17 Flextouch U-200] RX: Nystatin/Triamcinolone 1 cre TP BID 06/28/17 06/28/17 [Nystatin/Triamcinolone Cream] RX: Omeprazole 20 mg PO DAILY 06/28/17 06/28/17 RX: Phentermine HCl 30 mg PO DAILY 06/28/17 06/28/17 RX: Ranitidine HCl [Acid [employer]] 150 mg PO BID 06/28/17 06/28/17 RX: Simvastatin [Zocor] 20 mg PO DAILY 06/28/17 06/28/17 RX: Topiramate [Topamax] 25 mg PO 06/28/17 Victoza 1.8 1.8 mg SC DAILY 06/28/17 06/28/17 Review of Systems - Physician Review All systems were reviewed & negative as marked: Yes - Review of Systems Constitutional: absent: Fevers Respiratory: absent: SOB, Cough Cardiovascular: absent: Chest Pain, Palpitations, REYES, Syncope Gastrointestinal: absent: Abdominal Pain, Diarrhea, Nausea, Vomiting Musculoskeletal: absent: Back Pain, Neck Pain Neurological: absent: Headache, Dizziness Endocrine: absent: Polyuria Physical Exam Vital Signs Reviewed: Yes Vital Signs Temp Pulse Resp BP Pulse Ox 08/02/18 12:10 98.3 F 108 H 18 115/70 95 Temperature: Afebrile Blood Pressure: Normal Pulse: Tachycardic Respiratory Rate: Normal Appearance: Positive for: Well-Appearing, Non-Toxic, Comfortable Pain Distress: None Mental Status: Positive for: Alert and Oriented X 3 - Systems Exam Head: Present: Atraumatic, Normocephalic Pupils: Present: PERRL Extroacular Muscles: Present: EOMI Conjunctiva: Present: Normal Mouth: Present: Moist Mucous Membranes Neck: Present: Normal Range of Motion Respiratory/Chest: Present: Clear to Auscultation, Good Air Exchange. No: Respiratory Distress, Accessory Muscle Use Cardiovascular: Present: Regular Rate and Rhythm, Normal S1, S2. No: Murmurs Abdomen: No: Tenderness, Distention, Peritoneal Signs Back: Present: Normal Inspection Upper Extremity: Present: Normal Inspection. No: Cyanosis, Edema Lower Extremity: Present: Normal Inspection. No: Edema Neurological: Present: GCS=15, CN II-XII Intact, Speech Normal Skin: Present: Warm, Dry, Normal Color. No: Rashes Psychiatric: Present: Alert, Oriented x 3, Normal Insight, Normal Concentration Medical Decision Making ED Course and Treatment: 08/02/18 12:25 Impression: 62 year old female presents to the Emergency Department for evaluation of hypotension. Plan: -- Reassess and disposition Prior Visits: Notes and results from previous visits were reviewed. Progress Notes: Upon arrival to the Emergency Department , patient has a systolic BP of 115 and is in no acute distress. Patient states no medical complains and expresses to go home to her dog. Patient refuses any further medical intervention and requests to sign out against medical advice. The patient is choosing to leave against medical advice. I have personally explained to the patient that choosing to do so may result in permanent bodily harm or . I have discussed at great length that without further evaluation and monitoring there may be unforeseen circumstances and/or deterioration causing permanent bodily harm or as a result of their choice. The patient is alert, oriented, and shows the mental capacity to make clear decisions regarding the patients health care at this time. The patient continues to wish to leave against medical advice. In light of the patients decision to leave against medical advice, follow-up has been arranged and the patient is aware of the importance to following up as instructed. The patient has been advised that they should return to [facility] immediately if they change their mind at any time, or if their condition begins to change or worsen in any way. 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 in er, normotensive. no complaint. refuses any w/u. signs ama - Scribe Statement The provider has reviewed the documentation as recorded by the Scribe Rodríguez Baker. All medical record entries made by the Scribe were at my direction and personally dictated by me. I have reviewed the chart and agree that the record accurately reflects my personal performance of the history, physical exam, medical decision making, and the department course for this patient. I have also personally directed, reviewed, and agree with the discharge instructions and disposition. Disposition/Present on Arrival - Present on Arrival Any Indicators Present on Arrival: No History of DVT/PE: No History of Uncontrolled Diabetes: No Urinary Catheter: No History of Decub. Ulcer: No History Surgical Site Infection Following: None - Disposition Have Diagnosis and Disposition been Completed?: Yes Diagnosis: Weakness, Left against medical advice Disposition: AGAINST MEDICAL ADVICE Disposition Time: 12:20 Condition: UNKNOWN Discharge Instructions (ExitCare): Generalized Weakness (DC), Leaving Against Medical Advice, Weakness (ED) Additional Instructions: return to er with worsening symptoms or concerns. Referrals: Narda Gilmore DO [Primary Care Provider] - Follow up with primary Forms: [employer] ([employer])
[2018-08-02 12:29] VITALS: PULSE 99; RESP 19; O2SAT 98
== END 2018-08-02 12:33 | disposition left against medical advice (07) ==
LOC: ED 12:00
DX: R53.1 Weakness (principal)

== ENCOUNTER 2019-02-11 08:13 | Observation (INO) | payer MEDICARE, MEDICAID ==
--- NOTE | 2019-02-11 08:26 | ED PDOC ---
Arrival/HPI - General Chief Complaint: Syncope Time Seen by Provider: 02/11/19 08:17 Historian: Patient, EMS - History of Present Illness Time/Duration: Prior to Arrival Symptom Onset: Sudden Symptom Course: Resolved Severity Level: Moderate Associated Symptoms (Text): 02/11/19 08:24 Patient was outside standing in line with her daughter when she suddenly became dizzy lightheaded nauseous and had 2 syncopal or near syncopal episodes. She denies chest pain or palpitations. No dyspnea. No diaphoresis. No vomiting. 911 was called and medics responded and found the patient with a blood pressure that was hypotensive. She did respond to 500 cc bolus of normal saline with a blood pressure 127. She is now awake alert cooperative and asymptomatic. Past Medical History - Infectious Disease Hx of Infectious Diseases: None - Cardiac Hx Hypotension: Yes - Pulmonary Hx Chronic Obstructive Pulmonary Disease (COPD): Yes - Neurological HX Cerebrovascular Accident: Yes (R sided weakness) - HEENT Hx HEENT Disorder: Yes Hx Blind: Yes (legally blind) - Renal Hx Renal Disorder: No - Endocrine/Metabolic Hx Diabetes Mellitus Type 2: Yes Hx Hypothyroidism: Yes - Hematological/Oncological Hx Blood Disorders: No - Integumentary Hx Dermatological Disorder: No - Musculoskeletal/Rheumatological Hx Musculoskeletal Disorders: Yes Hx Back Pain: Yes Hx Falls: No - Gastrointestinal Hx Gastrointestinal Disorders: No - Genitourinary/Gynecological Hx Genitourinary Disorders: No - Psychiatric Hx Depression: Yes Hx Substance Use: No - Surgical History Hx Thyroidectomy: Yes (2011) - Anesthesia Hx Anesthesia: Yes Hx Anesthesia Reactions: No Hx Malignant Hyperthermia: No Family/Social History - Physician Review Nursing Documentation Reviewed: Yes Family/Social History: Unknown Family HX Smoking Status: Never Smoked Hx Alcohol Use: No Hx Substance Use: No Allergies/Home Meds Allergies/Adverse Reactions: Allergies No Known Allergies Allergy (Verified 02/11/19 08:18) Home Medications: Home Meds Medication Instructions Recorded Confirmed Albuterol Sulfate [Proventil Hfa] 0.09 mg IH PRN PRN 03/29/16 06/28/17 Fluticasone Propionate [Flovent 2 puff IH PRN PRN 03/29/16 06/28/17 Hfa] Levothyroxine Sodium [Synthroid] 200 mcg PO DAILY 03/29/16 06/28/17 Losartan [Cozaar] 25 mg PO DAILY 03/29/16 06/28/17 Metoclopramide [Reglan] 10 mg PO DAILY 03/29/16 06/28/17 Metoprolol Succinate XL [Toprol XL] 50 mg PO BRK 03/29/16 06/28/17 buPROPion [Wellbutrin] 300 mg PO DAILY 03/29/16 06/28/17 metFORMIN [glucOPHAGE] 1,000 mg PO BID 03/29/16 06/28/17 Clonazepam [Klonopin] 0.5 mg PO 06/28/17 Clotrimazole 1% Cream [Lotrimin 1% 0 applic TOP BID 06/28/17 06/28/17 CREAM] Cyanocobalamin [Vitamin B12 1000 1,000 mcg PO DAILY 06/28/17 06/28/17 mcg Tab] Dexamethasone/Tobramycin [Tobradex 5 ml OP 06/28/17 Opht Susp] Ibuprofen [Motrin Ib] 600 mg PO BID 06/28/17 06/28/17 Insulin Aspart/Insulin Aspar 125 units SC BID 06/28/17 06/28/17 [Novolog Mix 70/30 (70/30 units/ml)] Insulin Degludec [Tresiba 0 unit SQ 06/28/17 Flextouch U-200] Nystatin/Triamcinolone 1 cre TP BID 06/28/17 06/28/17 [Nystatin/Triamcinolone Cream] Omeprazole 20 mg PO DAILY 06/28/17 06/28/17 Phentermine HCl 30 mg PO DAILY 06/28/17 06/28/17 Ranitidine HCl [Acid [employer]] 150 mg PO BID 06/28/17 06/28/17 Simvastatin [Zocor] 20 mg PO DAILY 06/28/17 06/28/17 Topiramate [Topamax] 25 mg PO 06/28/17 Victoza 1.8 1.8 mg SC DAILY 06/28/17 06/28/17 Review of Systems - Physician Review All systems were reviewed & negative as marked: Yes - Review of Systems Constitutional: absent: Fatigue, Fevers Respiratory: absent: SOB, Cough, Wheezing Cardiovascular: Syncope. absent: Chest Pain, Palpitations Gastrointestinal: Nausea. absent: Abdominal Pain, Constipation, Diarrhea, Vomiting Neurological: Dizziness. absent: Headache, Focal Weakness, Gait Changes Physical Exam Temperature: Afebrile Blood Pressure: Normal Pulse: Regular Respiratory Rate: Normal Appearance: Positive for: Well-Appearing, Non-Toxic, Comfortable Pain Distress: None Mental Status: Positive for: Alert and Oriented X 3 - Systems Exam Head: Present: Atraumatic, Normocephalic Pupils: Present: PERRL Extroacular Muscles: Present: EOMI Conjunctiva: Present: Normal Ears: Present: NORMAL TM, Normal Canal. No: Erythema, TM Bulging Mouth: Present: Moist Mucous Membranes Pharnyx: No: ERYTHEMA, EXUDATE, TONSILS ENLARGED Neck: Present: Normal Range of Motion Respiratory/Chest: Present: Clear to Auscultation, Good Air Exchange. No: Respiratory Distress, Accessory Muscle Use Cardiovascular: Present: Regular Rate and Rhythm, Normal S1, S2. No: Murmurs Abdomen: No: Tenderness, Distention, Peritoneal Signs, Rebound, Guarding Upper Extremity: Present: Normal Inspection. No: Cyanosis, Edema Lower Extremity: Present: Normal Inspection. No: Edema Neurological: Present: GCS=15, CN II-XII Intact, Speech Normal, Motor Func Grossly Intact, Normal Sensory Function, Normal Cerebellar Funct Skin: Present: Warm, Dry, Normal Color. No: Rashes Psychiatric: Present: Alert, Oriented x 3, Normal Insight, Normal Concentration Medical Decision Making ED Course and Treatment: PROCEDURE: CT HEAD WITHOUT CONTRAST. Dictator : Gladys Wooten MD Report Date : 02/11/2019 09:21:34 IMPRESSION: No acute intracranial abnormality.If there is a persistent focal neurologic deficit and an ongoing clinical concern for acute infarction, an MRI of the brain without intravenous contrast would be a more sensitive modality for evaluation of hyperacute/acute ischemic infarction. Chronic infarctions in the left superior cerebellum. Small lacunar infarction in the right thalamus. Mild chronic microangiopathic changes and mild age-related global parenchymal volume loss. 02/11/19 10:07 EKG shows normal sinus rhythm rate approximately [address] or T wave changes. 02/11/19 10:09 Discussed with , who accepts to his service on telemetry observation. - RAD Interpretation Radiology Orders: 02/11/19 08:23 HEAD W/O CONTRAST [CT] Stat 02/11/19 08:24 CHEST PORTABLE [RAD] Stat Chest one view shows no infiltrate effusion or cardiomegaly. 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 Ulcer: No History Surgical Site Infection Following: None - Disposition Have Diagnosis and Disposition been Completed?: Yes Diagnosis: Hypotension, Syncope, Anemia, Hyperglycemia Disposition: HOSPITALIZED Disposition Time: 09:52 Patient Plan: Observation, Telemetry Patient Problems: Current Active Problems Problem Status Onset Anemia Acute Hyperglycemia Acute Hypotension Acute Syncope Acute Condition: IMPROVED Discharge Instructions (ExitCare): Syncope (ED) Forms: [employer] ([employer])
[2019-02-11 09:04] LABS: BASO # 0.06 K/mm3 (0.0-2.0); BASO % 0.8 % (0.0-3.0); EOS # 0.2 (0.0-0.7); EOS % 2.9 % (1.5-5.0); HEMOGLOBIN 11.7 g/dL (12.0-16.0); LYMPH # 2.7 (1.2-3.4); LYMPH % 35.8 % (22.0-35.0); MEAN CELL VOLUME 85.9 fl (80.0-105.0); MEAN CORPUSCULAR HEMOGLOBIN 28.1 pg (25.0-35.0); MEAN CORPUSCULAR HGB CONC 32.7 g/dl (31.0-37.0); MEAN PLATELET VOLUME 11.3 fl (7.0-11.0); MONO # 0.5 (0.1-0.6); MONO % 6.5 % (1.0-6.0); RBC 4.17 10^6/uL (3.5-6.1); RED CELL DISTRIBUTION WIDTH 14.4 % (11.5-14.5); WHITE BLOOD COUNT 7.5 10^3/uL (4.5-11.0)
[2019-02-11 09:12] LABS: ALB/GLOB RATIO 1.2 (1.1-1.8); ALBUMIN 3.7 g/dL (3.0-4.8); BLOOD UREA NITROGEN 30 mg/dL (7-21); CALCIUM 8.9 mg/dL (8.4-10.5); GFR NON-AFRICAN AMERICAN > 60; INR 1.04; PARTIAL THROMBOPLASTIN TIME 28.5 Seconds (26.9-38.3); PROTHROMBIN TIME 11.7 SECONDS (9.4-12.5)
[2019-02-11 09:14] LABS: ALT/SGPT 13 U/L (7-56); AST/SGOT 20 U/L (14-36)
[2019-02-11 09:23] LABS: TROPONIN I < 0.01 ng/mL
--- NOTE | 2019-02-11 09:25 | CT ---
Date of service: 02/11/2019 PROCEDURE: CT HEAD WITHOUT CONTRAST. HISTORY: syncope COMPARISON: 06/28/2017 TECHNIQUE: Axial computed tomography images were obtained through the head/brain without intravenous contrast. Radiation dose: Total exam DLP = 876.11 mGy-cm. This CT exam was performed using one or more of the following dose reduction techniques: Automated exposure control, adjustment of the mA and/or kV according to patient size, and/or use of iterative reconstruction technique. FINDINGS: HEMORRHAGE: No intracranial hemorrhage. BRAIN: There are mild chronic microangiopathic changes. There is no mass, mass effect or abnormal extra-axial fluid collection. There are chronic infarctions in the left superior cerebellum. There is a small lacunar infarction in the right thalamus. The midline sagittal structures are normal.There are coarse atherosclerotic calcifications in the cavernous carotid arteries. VENTRICLES: There is mild age-related global parenchymal volume loss and proportionate enlargement of the ventricles and cortical sulci. CALVARIUM: There is no calvarial fracture or extracranial soft tissue swelling. PARANASAL SINUSES: Predominantly clear. MASTOID AIR CELLS: Predominantly clear. OTHER FINDINGS: None. IMPRESSION: No acute intracranial abnormality.If there is a persistent focal neurologic deficit and an ongoing clinical concern for acute infarction, an MRI of the brain without intravenous contrast would be a more sensitive modality for evaluation of hyperacute/acute ischemic infarction. Chronic infarctions in the left superior cerebellum. Small lacunar infarction in the right thalamus. Mild chronic microangiopathic changes and mild age-related global parenchymal volume loss.
--- NOTE | 2019-02-11 11:12 | RAD ---
Date of service: 02/11/2019 HISTORY: syncope COMPARISON: 03/29/2016 FINDINGS: LUNGS: The lungs are well inflated and clear. PLEURA: No pleural effusions or pneumothorax. CARDIOVASCULAR: The heart is normal in size. No aortic atherosclerotic calcifications present. OSSEOUS STRUCTURES: Within normal limits for the patient's age. VISUALIZED UPPER ABDOMEN: Normal. OTHER FINDINGS: None. IMPRESSION: No active pulmonary disease.
[2019-02-11 14:09] VITALS: BMI 25.6
[2019-02-11] MEDS ORDERED: Pneumococcal 23-Valent Vaccine IM ONE (14:09)
[2019-02-11] MEDS: Sodium Chloride 0.9% 1,000 ML IV SCH ×2 (15:43→22:22)
[2019-02-11] MEDS: Insulin Reg-MEDIUM-Coverage SC SCH ×2 (18:38→21:38)
--- NOTE | 2019-02-11 19:37 | CON ---
DATE: 02/11/2019 HISTORY OF PRESENT ILLNESS: This is a 63-year-old female with a past medical history of diabetes, back pain, and depression and came to hospital. She was standing in line with her daughter, became dizzy and lightheaded, did not lose consciousness. No tongue bite. No urinary incontinence, did not hit her head to the floor. 911 was called and brought to the hospital. Blood pressure was found to be hypotensive. The patient was given 500 mL bolus of normal saline and then blood pressure became normal and was transferred to the floor. I was called to evaluate the patient. PAST MEDICAL HISTORY: As above. SOCIAL HISTORY: Does not smoke, does not drink. ALLERGIES: NO KNOWN DRUG ALLERGY. PHYSICAL EXAMINATION HEENT: Normocephalic and atraumatic. NECK: Supple. NEUROLOGIC: Awake, alert and orientated x3. No aphasia. Cranial nerves II through XII were tested. Pupils reactive. EOM intact. Visual zuniga full. No facial asymmetry. Tongue is midline. Motor examination; moves all the extremities equally. Tone normal. Deep tendon reflexes 1+. Both plantars are downgoing. Sensory appears intact. Cerebellar; gait was deferred. IMPRESSION AND PLAN: A 63-year-old female with past medical history as above, who felt dizzy and lightheadedness, syncope, less like seizure. No tongue bite. A CT scan of the head was no acute intracranial findings, old infarct, cerebellar. Continue present management. We will follow up. Garrick Matos MD
--- NOTE | 2019-02-12 02:59 | HP ---
DATE OF EXAM: 02/11/2019 CHIEF COMPLAINT AND HISTORY OF PRESENT ILLNESS: This is a 63-year-old female who is coming into the hospital with syncopal episode. She was dizzy and lightheaded. There were two episodes, she had called 911 and was reported that the patient's blood pressure was low. The patient was given 500 mL of normal saline and blood pressure improved. She states she has no complaints of any chest pain. No shortness of breath. No nausea. No vomiting. No abdominal pain. No back pain. No dysuria or frequency. No nocturia. REVIEW OF SYSTEMS: All other review of symptoms are within normal limits except what was mentioned. ALLERGIES: SHE HAS NO KNOWN DRUG ALLERGIES. SOCIAL HISTORY: She denies smoking or drinking. FAMILY HISTORY: Noncontributory. PAST SURGICAL HISTORY: Thyroidectomy, cholecystectomy, and gastric sleeve. PAST MEDICAL HISTORY: COPD, diabetes type 2, hypothyroidism, TIA, and vision impaired. PHYSICAL EXAMINATION: VITAL SIGNS: Temperature is 97.8, pulse is 67, blood pressure is 118/74, respirations are 18, and O2 saturation is 97%. Height is 5 feet 2 inches, weight is 140 pounds, and BMI is 25.6. GENERAL: The patient is lying in bed, comfortable, and in no acute distress. HEENT: Atraumatic and normocephalic. Anicteric sclerae. Moist mucosa. [place] conjunctivae. No oral lesions. NECK: No JVD, anterior and posterior adenopathy, thyromegaly, or bruits. CARDIOVASCULAR: S1 and S2 regular. No murmurs, rubs or gallops. LUNGS: Clear to auscultation bilaterally. No wheezes, rales, or rhonchi. ABDOMEN: Bowel sounds are positive. Soft, nontender and nondistended. No hepatosplenomegaly. No rebound and no guarding. EXTREMITIES: No cyanosis, clubbing, or edema. NEUROLOGIC: No facial asymmetry. Tongue is midline. No uvula deviation. Power is 5/5 upper extremities and lower extremities. Sensation intact in upper extremities and lower extremities. PSYCHIATRIC: She is awake, alert and oriented x3. No anxiety or depression. She has normal affect. GENITOURINARY: No CVA tenderness. VASCULAR: 2+ pulses in the carotid pulses and pedal pulses. SKIN: No erythema or nodules SPINE: Shows normal curvature. LABORATORY DATA: White count 7.5, hemoglobin 11.7, and platelet count 213. INR is 1.07. Sodium is 138, potassium is 4.3, creatinine is 0.7, phosphorus is 5, and troponin is 0.01. Toxicology shows an alcohol less than 10. CT of the head done shows no acute intracranial abnormalities with chronic infarct in the left superior cerebellum, small lacunar infarct in the right thalamus. Chest x-ray done shows no active disease. ASSESSMENT: 1. Dizziness secondary to hypotension. 2. Syncope secondary to hypotension. 3. History of transient ischemic attack. 4. Diabetes type 2. 5. Dyslipidemia. PLAN: The patient is going to be admitted to the hospital. She has been given IV fluids. Her blood pressure is improved. She is on Lipitor for dyslipidemia. She is on aspirin for TIA history. She is reported to have diabetes and sugars elevated at 228. She will be placed on insulin sliding scale. I will hold her losartan. I will also hold her metformin and continue the insulin sliding scale. She does not complain of any dizziness at this point. I did speak to the patient's daughter at the bedside to given her update on the patient's diagnosis and plan of care. Kaushik Grover MD
--- NOTE | 2019-02-12 05:34 | CARD ---
APPROVED REPORT Date of service: 02/11/2019 EKG Measurement Heart [id number] IN [id number] <Conclusion> Normal sinus rhythm Normal ECG
[2019-02-12 06:01] VITALS: TEMP 98.5
[2019-02-12] MEDS: Insulin Reg-MEDIUM-Coverage SC SCH (07:40)
[2019-02-12 08:45] VITALS: BP 124/82; RESP 16; O2SAT 97
[2019-02-12 09:11] LABS: URINE BILIRUBIN NEGATIVE (NEGATIVE); URINE BLOOD NEGATIVE (NEGATIVE); URINE GLUCOSE (UA) NEGATIVE (NEGATIVE); URINE LEUKOCYTE ESTERASE NEGATIVE Leu/uL (NEGATIVE); URINE PROTEIN NEGATIVE mg/dL (<30 mg/dL); URINE UROBILINOGEN 0.2 E.U./dL (<1 E.U./dL)
[2019-02-12 09:15] LABS: URINE APPEARANCE SL CLOUDY (CLEAR); URINE COLOR YELLOW (YELLOW)
[2019-02-12] MEDS: Sodium Chloride 0.9% 1,000 ML IV SCH (09:15)
[2019-02-12 09:26] LABS: URINE BACTERIA LARGE /hpf; URINE EPITHELIAL CELLS 0 - 2 /hpf (0-5)
[2019-02-12 11:12] VITALS: PULSE 78
--- NOTE | 2019-02-13 02:39 | DS ---
HISTORY OF PRESENT ILLNESS: This is a 63-year-old female who came into the hospital because of syncopal episode. She was found to have low blood pressure while being brought the emergency room by EMS. The patient says that she has lost significant amount of weight since her gastric bypass. She continues to be on metoprolol and losartan. The patient's blood pressure improved after giving her IV fluids. She was seen by Dr. Matos for evaluation. The patient does not require any further intervention, this is unlikely seizures, this is most likely from the relative hypotension and the patient has been on blood pressure medications. She does not require blood pressure medications at this point. I have discontinued the blood pressure medications. She is going to be discharged off of losartan and metoprolol. I did explain this to her. The patient was advised to follow up with her primary care doctor. PHYSICAL EXAMINATION: VITAL SIGNS: Temperature is 98.5, blood pressure 124/82, respirations 16, O2 saturation is 97%. GENERAL: The patient is lying in bed, flat, comfortable. HEENT: No oral lesion. Anicteric sclerae. Moist mucosa. NECK: No JVD, adenopathy, or thyromegaly. CARDIOVASCULAR: S1 and S2, regular. No murmurs, rubs, or gallops. LUNGS: Clear to auscultation bilaterally. No wheeze, rales, or rhonchi. ABDOMEN: Bowel sounds are positive, soft, nontender and nondistended. EXTREMITIES: No cyanosis, clubbing or edema. ASSESSMENT: 1. Dizziness secondary to hypotension. 2. Syncope secondary to hypotension. 3. Diabetes type 2, improved. 4. Dyslipidemia. 5. Transient ischemic attack. 6. Status post gastric bypass. PLAN: The patient is currently comfortable. She is on Lipitor for dyslipidemia. She is on insulin sliding scale because she does have diabetes, but it is improved since she has lost her weight. She is on a regular diet. I will discharge her home to follow up with the primary care doctor. CONDITION: Stable. ACTIVITIES: Increase as tolerated. Kaushik Grover MD
== END 2019-02-12 13:46 | disposition home or self-care (01) ==
LOC: ED 08:13 → ERH 09:50 → 2RSO 12:22
PROVIDERS: ADMIT Internal Medicine Nephrology; ATTEND Internal Medicine Nephrology
DX: I95.9 Hypotension, unspecified (principal); E11.51 Type 2 diabetes mellitus with diabetic peripheral angiopathy without gangrene; E11.65 Type 2 diabetes mellitus with hyperglycemia; D64.9 Anemia, unspecified; E78.5 Hyperlipidemia, unspecified; E89.0 Postprocedural hypothyroidism; H54.8 Legal blindness, as defined in USA; I63.81 Other cerebral infarction due to occlusion or stenosis of small artery; J44.9 Chronic obstructive pulmonary disease, unspecified; Z79.4 Long term (current) use of insulin; Z79.51 Long term (current) use of inhaled steroids; Z79.890 Hormone replacement therapy; I69.351 Hemiplegia and hemiparesis following cerebral infarction affecting right dominant side; Z98.84 Bariatric surgery status
CPT/HCPCS: 36415; 70450; 71045; 80053; 81001; 82550; 82948; 83615; 83735; 84100; 84484; 85025; 85610; 85730; 93005; 99285; G0378; G0480; J7030